=== PATIENT | female | born 1960 | race Caucasian/White ===

== ENCOUNTER 2018-12-18 19:00 | Inpatient (IN) ==
[2018-12-18] MEDS ORDERED: ASPIRIN CHEW 324 MG PO STA (19:15)
[2018-12-18] MEDS ORDERED: LORazepam 1 MG/2 ML VIAL IV STA (19:15)
[2018-12-18] MEDS ORDERED: SODIUM CHLORIDE 0.9% 1000ML 1,000 ML IV SCH (19:15)
[2018-12-18] MEDS ORDERED: LORazepam 1 MG TAB ONE (19:46)
[2018-12-18 20:05] LABS: Basophils # (auto) 0.02 K/uL (0-0.2); Basophils % (auto) 0.2 %; Eosinophils # (auto) 0.08 K/uL (0-0.5); Eosinophils % (auto) 0.7 %; Hemoglobin 14.6 g/dL (12.0-16.0); Immature Granulocytes # (auto) 0.04 K/uL (0.00-0.02); Immature Granulocytes % (auto) 0.3 %; Lymphocytes # (auto) 2.23 K/uL (1.2-3.4); Lymphocytes % (auto) 19.5 %; Mean Platelet Volume 10.5 fL (7.4-10.4); Monocytes # (auto) 0.73 K/uL (0.11-0.59); Monocytes % (auto) 6.4 %; Neutrophils # (auto) 8.36 K/uL (1.4-6.5); Neutrophils % (auto) 72.9 %; Platelet Count 338 K/uL (130-400); RDW Coefficient of Variation 14.4 % (11.5-14.5); RDW Standard Deviation 44.4 fL (36.4-46.3); White Blood Count 11.46 K/uL (4.8-10.8)
[2018-12-18 20:12] LABS: Appearance Urine Clear (Clear); Bacteria Urine Automated Negative (Negative); Bilirubin Urine Negative (Negative); Blood Urine Negative (Negative); Color Urine Yellow; Epithelial Cell Urine Auto >30 /lpf (0-5); Glucose Urine UA Negative (Negative); Ketones Urine Negative (Negative); Leukocyte Esterase Urine 1+ (Negative); Nitrite Urine Negative (Negative); Protein Urine 3+ (Negative); RBC Urine Automated 0-4 /hpf (0-4); Urobilinogen Urine Negative (Negative); pH Urine 5.5 (4.5-7.5)
[2018-12-18 20:15] LABS: INR 1.2 (0.9-1.1); Partial Thromboplastin Ratio 0.9; Partial Thromboplastin Time 24.9 Seconds (21.0-31.0); Prothrombin Time 12.1 Seconds (9.0-12.0)
[2018-12-18 20:21] LABS: Cast Urine Automated >30 /lpf (0-5)
[2018-12-18 20:22] LABS: Renal Epithelial Cells Urine 0-5 /lpf (0-5)
[2018-12-18 20:23] LABS: Albumin Level 3.5 gm/dl (3.4-5.0); BUN Creatinine Ratio 15.9 (10-20); Bilirubin Direct 0.5 mg/dl (0-0.2); Calcium 8.8 mg/dl (8.5-10.1); Est GFR (African American) 67.6; Est GFR (Non-African American) 58.4; Potassium 3.4 mmol/L (3.5-5.1)
[2018-12-18 20:30] LABS: Amphetamines+Metham, Urine Neg (Neg); Barbiturates, Urine Neg (Neg); Benzodiazepine, Urine Neg (Neg); Cocaine, Urine Neg (Neg); MDMA (Ecstacy), Urine Neg (Neg); Methadone, Urine Neg (Neg); Opiate, Urine Neg (Neg); Phencyclidine, Urine Neg (Neg)
[2018-12-18 20:31] LABS: Bilirubin,Total 2.1 mg/dl (0.2-1); Total Protein 7.3 gm/dl (6.4-8.2); Troponin I 0.062 ng/ml (0-0.045)
--- NOTE | 2018-12-18 20:42 | XRay Report ---
XR abdomen 2V w PA chest CLINICAL HISTORY: vomitting diarrhea tachycardia COMPARISON STUDY: None FINDINGS: Bilateral pleural effusion. Components of congestive heart failure. Nonobstructive bowel pa ttern. No abnormal calcifications. IMPRESSION: 1. Congestive heart failure. 2. Negative abdomen. The above report was generated using voice recognition software. It may contain grammatical, syntax or spelling errors. Electronically signed by: Lito Servin M.D. 12/18/2018 8:41 PM
[2018-12-18 20:43] LABS: Influenza A virus by PCR Neg for Influ A (Neg); Influenza B virus by PCR Neg for Influ B (Neg)
[2018-12-18] MEDS ORDERED: OPTIRAY 320 125ml IV PRN (21:06)
--- NOTE | 2018-12-18 21:12 | CT Scan Report ---
CT angio chest PE protocol CT DOSE: 356.01 mGy.cm HISTORY: Chest pain ro PE TECHNIQUE: Multiaxial CT images of the chest were performed following the intravenous administration of contrast to evaluate the pulmonary arteries. Maximal intensity projection images were also obtaine d. A dose lowering technique was utilized adhering to the principles of ALARA. COMPARISON STUDY: None. FINDINGS: Vascular is unremarkable. Pulmonary vasculature enhances appropriately. There are no filling defects. Findings of congestive he art failure and bilateral pleural effusions. Heart is moderately enlarged. IMPRESSION: 1. Congestive heart failure. 2. Bilateral pleural effusions. 3. Study is negative for pulmonary embolus. The above report was generated using voice recognition software. It may contain grammatical, syntax or spelling errors. Electronically signed by: Lito Servin M.D. 12/18/2018 9:10 PM
[2018-12-18] MEDS ORDERED: METOPROLOL TARTRATE 1 MG/ML VIAL IV STA (22:19)
[2018-12-18] MEDS ORDERED: FUROSEMIDE 40 MG in SYRINGE 0 ML IV ONE (22:22)
[2018-12-18] MEDS ORDERED: FUROSEMIDE 40 MG/4 ML VIAL IV ONE (22:27)
[2018-12-18] MEDS ORDERED: Heparin IV Standard *NO* Bolus ONE (22:54)
--- NOTE | 2018-12-18 23:03 | Emergency Department Note ---
Entered by Jalen Manrique acting as a scribe for History of Present Illness General Chief complaint: Tachycardia Stated complaint: high blood pressure, shortness of breath Time Seen by Provider: 12/18/18 19:10 Source: patient Limitations: no limitations History of Present Illness The patient is a 58 year old female who presents to the Emergency Room with complaints of tachycardia. The patient states she went to a walk-in clinic for a flu she has been having. She states she has been having nausea and diarrhea. She notes she has been coughing but denies coughing blood. She states she has been vomiting but notes no blood in vomit. She notes her legs have been swollen for a week. She notes she gets very anxious when coming to the hospital and notes she thinks that's the reason her BP and HR were up. She states her chest pain and difficulties breathing started when she came to the hospital. She denies recent long travels, blood in stool, dark or black stools, and vaginal discharge or bleeding. Home Medications Home Medications Medication Instructions Recorded Confirmed Type ibuprofen 200 mg PO QID PRN 12/18/18 12/18/18 History Allergies Allergy/AdvReac Type Severity Reaction Status Date / Time Penicillins Allergy HIVES,NAUSE Verified 12/18/18 20:02 A Sulfa (Sulfonamide Allergy Hives, Verified 12/18/18 20:02 Antibiotics) SWEKLLING ,NAUSEA Tetanus Vaccines and Toxoid AdvReac Nausea Verified 12/18/18 20:02 Past Med/Surg History Medical History No pertinent past medical history Surgical History No pertinent past surgical history Social History Preferred Language: Luxembour[place] Feels Safe at Home: Yes Smoking Status: Never smoker Review of Systems See HPI for pertinent positives & negatives. and A total of 10 systems reviewed and were otherwise negative Physical Exam Vital Signs Vital Signs - 24 hr 12/18/18 19:02 12/18/18 19:50 12/18/18 19:51 Temperature 36.6 C Temperature Source Oral Sepsis Recent Fever Within 48 Hours No Sepsis New/Unexplained Change in Mental Status No Sepsis Action Taken by Nursing No Action Required Pulse Rate 137 H Pulse Rate from SpO2 Sensor Respiratory Rate 18 Blood Pressure 206/142 H Blood Pressure Mean 163 Pulse Oximetry 100 Oxygen Delivery Method Room Air Room Air Room Air 12/18/18 20:06 12/18/18 20:08 12/18/18 20:24 Temperature Temperature Source Sepsis Recent Fever Within 48 Hours Sepsis New/Unexplained Change in Mental Status Sepsis Action Taken by Nursing Pulse Rate 123 H 123 H 124 H Pulse Rate from SpO2 Sensor Respiratory Rate 24 18 19 Blood Pressure 169/128 H 189/137 H Blood Pressure Mean 141 154 Pulse Oximetry Oxygen Delivery Method 12/18/18 20:36 12/18/18 20:40 12/18/18 20:41 Temperature Temperature Source Sepsis Recent Fever Within 48 Hours Sepsis New/Unexplained Change in Mental Status Sepsis Action Taken by Nursing Pulse Rate 132 H 129 H 131 H Pulse Rate from SpO2 Sensor Respiratory Rate 24 21 19 Blood Pressure 194/142 H Blood Pressure Mean 159 Pulse Oximetry Oxygen Delivery Method 12/18/18 20:50 12/18/18 21:30 12/18/18 22:00 Temperature Temperature Source Sepsis Recent Fever Within 48 Hours Sepsis New/Unexplained Change in Mental Status Sepsis Action Taken by Nursing Pulse Rate 125 H 122 H 122 H Pulse Rate from SpO2 Sensor 124 H 123 H Respiratory Rate 20 24 22 Blood Pressure 183/138 H 175/126 H Blood Pressure Mean 153 142 Pulse Oximetry 98 95 Oxygen Delivery Method Room Air 12/18/18 22:30 12/18/18 22:35 12/18/18 22:49 Temperature Temperature Source Sepsis Recent Fever Within 48 Hours Sepsis New/Unexplained Change in Mental Status Sepsis Action Taken by Nursing Pulse Rate 117 H 118 H 98 H Pulse Rate from SpO2 Sensor 115 H 100 H Respiratory Rate 26 H 22 Blood Pressure 170/115 H 170/115 H 151/114 H Blood Pressure Mean 133 126 Pulse Oximetry 96 97 Oxygen Delivery Method 12/18/18 22:50 Temperature Temperature Source Sepsis Recent Fever Within 48 Hours Sepsis New/Unexplained Change in Mental Status Sepsis Action Taken by Nursing Pulse Rate 98 H Pulse Rate from SpO2 Sensor 95 H Respiratory Rate 21 Blood Pressure Blood Pressure Mean Pulse Oximetry 98 Oxygen Delivery Method GENERAL: She is oriented to person, place, and time. She appears well-developed and well-nourished. She does not appear distressed. HENT: Exam performed. \[id number] Head: Normocephalic and atraumatic. \u00b7 Right Ear: External ear normal. No mastoid tenderness. \u00b7 Left Ear: External ear normal. No mastoid tenderness. \u00b7 Mouth/Throat: The oropharynx is clear and moist. No trismus in the jaw. No dental abscesses or uvula swelling. No oropharyngeal exudate or tonsillar abscesses. EYES: Conjunctivae and EOM are normal. Pupils are equal, round, and reactive to light. Right eye exhibits no discharge. Left eye exhibits no discharge. No scleral icterus. NECK: Normal range of motion. Neck supple. No JVD present. No spinous process tenderness present. No carotid bruit present. No rigidity. No tracheal deviation and normal range of motion present. No Brudzinski's sign and no Kernig's sign noted. CV: Tachycardic rate, regular rhythm, normal heart sounds and intact distal pulses. Palpable radial pulses bue. 2+ pitting edema in bilateral lower extremities. PULM/CHEST: Effort normal and breath sounds normal. No respiratory distress. No stridor. She has no wheezes. She has no rales. Chest Wall: She exhibits no tenderness. ABD: The abdomen is soft. Bowel sounds are normal. She has no distension. No mass is present. There is no tenderness. There is no rebound, no guarding, no Piedra's sign and no tenderness at McBurney's point. Rovsig negative MUSC/SKEL: Normal range of motion. There is no tenderness or deformity. 2+ pitting edema in bilateral lower extremities. LYMPH: No cervical adenopathy. NEURO: She is alert and oriented to person, place, and time. She has normal strength. No cranial nerve deficit or sensory deficit. Coordination and gait normal. GCS eye subscore is 4. GCS verbal subscore is 5. GCS motor subscore is 6. cerbellar tests wnl. SKIN: Skin is warm and dry. She is not diaphoretic. PSYCH: She has a normal mood and affect. Her behavior is normal. Judgment and thought content normal. Course 1910: Past medical records reviewed. The patient was evaluated in room C7, and a complete history and physical examination were performed. 2044: A repeat EKG showed sinus tachycardia at 130 BPM. The KY, QRS, and QT/QTc are wnls. ST depression was shown in leads v5 and v6. No ST elevation. I reevaluated the patient. Patient denies chest pain or SOB. Labs showed sodium of 127. Lactic acid of 2.2. Troponin of 0.062. NT-Pro-B Natriuret Pep of . Patient's imaging shows findings consistent with CHF, cardiomegaly, right-sided pleural effusion, and cephalization. The patient remains tachycardic despite Ativan. IV fluids were stopped given the patient's findings of cardiomegaly and cephalization on x-ray and elevated proBNP level. The patient will get a CT of chest to rule out PE. 2215: CTA negative for PE. Does shows findings consistent with CHF, cardiomegaly with bilateral pleural effusions. It is difficult to ascertain if the patient's findings of congestive heart failure are due to a new diagnosis of congestive heart failure causing an elevated troponin level, or if there is an NSTEMI causing impaired cardiac contractility resulting in findings that are consistent with congestive heart failure. I discussed the patients case with cardiology on- call Dr. Miller. Both he and I agree that the patient should be started on heparin given the elevated troponin the patient's clinical presentation. He recommends improving the patient's heart rate with metoprolol 5 mg IV. He also recommends giving Lasix 40 mg. 2300: Status post metoprolol 5 mg IV bolus and Lasix, the patient's pulse is 98. Repeat blood pressure 151/114. Repeat EKG shows sinus rhythm with a rate of 99. KY QRS interval within normal limits. QTC 528. There is baseline artifact due to patient movement. T wave inversions in lead V6 only. No ST elevation or ST depression. Discussed case with Dr. Crowe who agrees to admission. Administered Medications Ioversol (Optiray 320 125ml) 96 ml IV ONCE PRN PRN Reason: Interaction Checking Stop: 12/22/18 21:05 Last Admin: 12/18/18 21:06 Dose: 96 ml Documented by: [id number] Discontinued Medications Aspirin (Aspirin) 324 mg PO NOW STA Stop: 12/18/18 19:16 Last Admin: 12/18/18 19:44 Dose: 324 mg Documented by: [id number] Furosemide (Lasix) Confirm Administered Dose 40 mg IV .ST[facility]VI [employer]-[facility] ONE Stop: 12/18/18 22:28 Last Admin: 12/18/18 22:36 Dose: 40 mg Documented by: [id number] Sodium Chloride (Nss 1000ml) 1,000 mls @ 999 mls/hr IV .Q1H1M MIKE Stop: 12/18/18 20:15 Last Infusion: 12/18/18 21:09 Dose: 0 mls/hr Documented by: [id number] Admin: 12/18/18 20:06 Dose: 999 mls/hr Documented by: [id number] Lorazepam (Ativan) 1 mg in 2 mls @ 2 mls/min IV NOW STA Stop: 12/18/18 19:16 Last Admin: 12/18/18 19:49 Dose: Not Given Documented by: [id number] Furosemide 40 mg/ Syringe 4 mls @ 4 mls/min IV ONE ONE Stop: 12/18/18 22:23 Last Admin: 12/18/18 22:36 Dose: Not Given Documented by: [id number] Lorazepam (Ativan) Confirm Administered Dose 1 mg .ROUTE .STK-MED ONE Stop: 12/18/18 19:47 Last Admin: 12/18/18 19:49 Dose: 1 mg Documented by: [id number] Metoprolol Tartrate (Lopressor) 5 mg IV NOW STA Stop: 12/18/18 22:20 Last Admin: 12/18/18 22:35 Dose: 5 mg Documented by: [id number] Medical Decision Making Medical Records Attestation: I reviewed the patient's medical records. Home Medications Current Medication List: was personally reviewed by me Laboratory Data Attestation: I reviewed the patient's lab results. Result diagrams: 12/18/18 19:36 12/18/18 19:36 Lab Results 12/18/18 12/18/18 12/18/18 Range/Units 19:36 19:36 19:36 WBC 11.46 H (4.8-10.8) K/uL RBC 5.00 (4.2-5.4) M/uL Hgb 14.6 (12.0-16.0) g/dL Hct 43.0 (37-47) % MCV 86.0 (80-100) fL MCH 29.2 (25-34) pg MCHC 34.0 (32-36) g/dL RDW Std Deviation 44.4 (36.4-46.3) fL RDW Coeff of Clemencia 14.4 (11.5-14.5) % Plt Count 338 (130-400) K/uL MPV 10.5 H (7.4-10.4) fL Immature Gran % (Auto) 0.3 % Neut % (Auto) 72.9 % Lymph % (Auto) 19.5 % [place] % (Auto) 6.4 % Eos % (Auto) 0.7 % Baso % (Auto) 0.2 % Immature Gran # (Auto) 0.04 H (0.00-0.02) K/uL Neut # (Auto) 8.36 H (1.4-6.5) K/uL Lymph # (Auto) 2.23 (1.2-3.4) K/uL [place] # (Auto) 0.73 H (0.11-0.59) K/uL Eos # (Auto) 0.08 (0-0.5) K/uL Baso # (Auto) 0.02 (0-0.2) K/uL PT 12.1 H (9.0-12.0) Seconds INR 1.2 H (0.9-1.1) APTT 24.9 (21.0-31.0) Seconds PTT Ratio 0.9 Sodium 127 L (136-145) mmol/L Potassium 3.4 L (3.5-5.1) mmol/L Chloride 91 L (98-107) mmol/L Carbon Dioxide 21 (21-32) mmol/L Anion Gap 15.0 H (3-11) BUN 17 (7-18) mg/dl Creatinine 1.04 (0.6-1.2) mg/dl Est Cr Clr Drug Dosing 64.0 ml/min Est GFR ( Amer) 67.6 Est GFR (Non-Af Amer) 58.4 BUN/Creatinine Ratio 15.9 (10-20) Glucose 132 H (70-99) mg/dl Lactate (0.4-2.0) mmol/L Calcium 8.8 (8.5-10.1) mg/dl Total Bilirubin 2.1 H (0.2-1) mg/dl Direct Bilirubin 0.5 H (0-0.2) mg/dl AST 24 (15-37) U/L ALT 39 (12-78) U/L Alkaline Phosphatase 104 (45-117) U/L Troponin I 0.062 H* (0-0.045) ng/ml NT-Pro-B Natriuret Pep 62420 H (0-900) pg/ml Total Protein 7.3 (6.4-8.2) gm/dl Albumin 3.5 (3.4-5.0) gm/dl Lipase 81 (73-393) U/L Urine Color Urine Appearance (Clear) Urine pH (4.5-7.5) Ur Specific [place] (1.000-1.030) Urine Protein (Negative) Urine Glucose (UA) (Negative) Urine Ketones (Negative) Urine Blood (Negative) Urine Nitrite (Negative) Urine Bilirubin (Negative) Urine Urobilinogen (Negative) Ur Leukocyte Esterase (Negative) Urine WBC (Auto) (0-5) /hpf Urine RBC (Auto) (0-4) /hpf U Hyaline Cast (Auto) (0-5) /lpf U Epithel Cells (Auto) (0-5) /lpf Urine Bacteria (Auto) (Negative) Ur Renal Epithelial Cell (0-5) /lpf Granular Casts (0) /lpf Waxy Casts (0) /lpf WBC Casts (0) /lpf Urine Opiates Screen (Neg) Ur Methadone, Qual (Neg) Urine Barbiturates (Neg) Ur Phencyclidine (PCP) (Neg) U Amphetamin/Meth Scrn (Neg) MDMA (Ecstasy) Screen (Neg) U Benzodiazepines Scrn (Neg) Ur Cocaine Metabolite (Neg) U Marijuana (THC) Screen (Neg) Influenza Type A (PCR) (Neg) Influenza Type B (PCR) (Neg) 12/18/18 12/18/18 12/18/18 Range/Units 19:36 19:50 19:50 WBC (4.8-10.8) K/uL RBC (4.2-5.4) M/uL Hgb (12.0-16.0) g/dL Hct (37-47) % MCV (80-100) fL MCH (25-34) pg MCHC (32-36) g/dL RDW Std Deviation (36.4-46.3) fL RDW Coeff of Clemencia (11.5-14.5) % Plt Count (130-400) K/uL MPV (7.4-10.4) fL Immature Gran % (Auto) % Neut % (Auto) % Lymph % (Auto) % [place] % (Auto) % Eos % (Auto) % Baso % (Auto) % Immature Gran # (Auto) (0.00-0.02) K/uL Neut # (Auto) (1.4-6.5) K/uL Lymph # (Auto) (1.2-3.4) K/uL [place] # (Auto) (0.11-0.59) K/uL Eos # (Auto) (0-0.5) K/uL Baso # (Auto) (0-0.2) K/uL PT (9.0-12.0) Seconds INR (0.9-1.1) APTT (21.0-31.0) Seconds PTT Ratio Sodium (136-145) mmol/L Potassium (3.5-5.1) mmol/L Chloride (98-107) mmol/L Carbon Dioxide (21-32) mmol/L Anion Gap (3-11) BUN (7-18) mg/dl Creatinine (0.6-1.2) mg/dl Est Cr Clr Drug Dosing ml/min Est GFR ( Amer) Est GFR (Non-Af Amer) BUN/Creatinine Ratio (10-20) Glucose (70-99) mg/dl Lactate 2.2 H* (0.4-2.0) mmol/L Calcium (8.5-10.1) mg/dl Total Bilirubin (0.2-1) mg/dl Direct Bilirubin (0-0.2) mg/dl AST (15-37) U/L ALT (12-78) U/L Alkaline Phosphatase (45-117) U/L Troponin I (0-0.045) ng/ml NT-Pro-B Natriuret Pep (0-900) pg/ml Total Protein (6.4-8.2) gm/dl Albumin (3.4-5.0) gm/dl Lipase (73-393) U/L Urine Color Yellow Urine Appearance Clear (Clear) Urine pH 5.5 (4.5-7.5) Ur Specific [place] 1.020 (1.000-1.030) Urine Protein 3+ H (Negative) Urine Glucose (UA) Negative (Negative) Urine Ketones Negative (Negative) Urine Blood Negative (Negative) Urine Nitrite Negative (Negative) Urine Bilirubin Negative (Negative) Urine Urobilinogen Negative (Negative) Ur Leukocyte Esterase 1+ H (Negative) Urine WBC (Auto) 10-30 H (0-5) /hpf Urine RBC (Auto) 0-4 (0-4) /hpf U Hyaline Cast (Auto) >30 H (0-5) /lpf U Epithel Cells (Auto) >30 H (0-5) /lpf Urine Bacteria (Auto) Negative (Negative) Ur Renal Epithelial Cell 0-5 (0-5) /lpf Granular Casts 1-5 H (0) /lpf Waxy Casts 1-5 H (0) /lpf WBC Casts 1-5 H (0) /lpf Urine Opiates Screen Neg (Neg) Ur Methadone, Qual Neg (Neg) Urine Barbiturates Neg (Neg) Ur Phencyclidine (PCP) Neg (Neg) U Amphetamin/Meth Scrn Neg (Neg) MDMA (Ecstasy) Screen Neg (Neg) U Benzodiazepines Scrn Neg (Neg) Ur Cocaine Metabolite Neg (Neg) U Marijuana (THC) Screen Neg (Neg) Influenza Type A (PCR) (Neg) Influenza Type B (PCR) (Neg) 12/18/18 Range/Units 20:03 WBC (4.8-10.8) K/uL RBC (4.2-5.4) M/uL Hgb (12.0-16.0) g/dL Hct (37-47) % MCV (80-100) fL MCH (25-34) pg MCHC (32-36) g/dL RDW Std Deviation (36.4-46.3) fL RDW Coeff of Clemencia (11.5-14.5) % Plt Count (130-400) K/uL MPV (7.4-10.4) fL Immature Gran % (Auto) % Neut % (Auto) % Lymph % (Auto) % [place] % (Auto) % Eos % (Auto) % Baso % (Auto) % Immature Gran # (Auto) (0.00-0.02) K/uL Neut # (Auto) (1.4-6.5) K/uL Lymph # (Auto) (1.2-3.4) K/uL [place] # (Auto) (0.11-0.59) K/uL Eos # (Auto) (0-0.5) K/uL Baso # (Auto) (0-0.2) K/uL PT (9.0-12.0) Seconds INR (0.9-1.1) APTT (21.0-31.0) Seconds PTT Ratio Sodium (136-145) mmol/L Potassium (3.5-5.1) mmol/L Chloride (98-107) mmol/L Carbon Dioxide (21-32) mmol/L Anion Gap (3-11) BUN (7-18) mg/dl Creatinine (0.6-1.2) mg/dl Est Cr Clr Drug Dosing ml/min Est GFR ( Amer) Est GFR (Non-Af Amer) BUN/Creatinine Ratio (10-20) Glucose (70-99) mg/dl Lactate (0.4-2.0) mmol/L Calcium (8.5-10.1) mg/dl Total Bilirubin (0.2-1) mg/dl Direct Bilirubin (0-0.2) mg/dl AST (15-37) U/L ALT (12-78) U/L Alkaline Phosphatase (45-117) U/L Troponin I (0-0.045) ng/ml NT-Pro-B Natriuret Pep (0-900) pg/ml Total Protein (6.4-8.2) gm/dl Albumin (3.4-5.0) gm/dl Lipase (73-393) U/L Urine Color Urine Appearance (Clear) Urine pH (4.5-7.5) Ur Specific [place] (1.000-1.030) Urine Protein (Negative) Urine Glucose (UA) (Negative) Urine Ketones (Negative) Urine Blood (Negative) Urine Nitrite (Negative) Urine Bilirubin (Negative) Urine Urobilinogen (Negative) Ur Leukocyte Esterase (Negative) Urine WBC (Auto) (0-5) /hpf Urine RBC (Auto) (0-4) /hpf U Hyaline Cast (Auto) (0-5) /lpf U Epithel Cells (Auto) (0-5) /lpf Urine Bacteria (Auto) (Negative) Ur Renal Epithelial Cell (0-5) /lpf Granular Casts (0) /lpf Waxy Casts (0) /lpf WBC Casts (0) /lpf Urine Opiates Screen (Neg) Ur Methadone, Qual (Neg) Urine Barbiturates (Neg) Ur Phencyclidine (PCP) (Neg) U Amphetamin/Meth Scrn (Neg) MDMA (Ecstasy) Screen (Neg) U Benzodiazepines Scrn (Neg) Ur Cocaine Metabolite (Neg) U Marijuana (THC) Screen (Neg) Influenza Type A (PCR) Neg for Influ A (Neg) Influenza Type B (PCR) Neg for Influ B (Neg) Imaging Data Radiologist's Impression: Radiology results as stated below per my review and the radiologist's interpretation: XR abdomen 2V w PA chest CLINICAL HISTORY: vomiting diarrhea tachycardia COMPARISON STUDY: None FINDINGS: Bilateral pleural effusion. Components of congestive heart failure. Nonobstructive bowel pattern. No abnormal calcifications. IMPRESSION: 1. Congestive heart failure. 2. Negative abdomen. The above report was generated using voice recognition software. It may contain grammatical, syntax or spelling errors. Electronically signed by: Lito Servin M.D. 12/18/2018 8:[address] angio chest PE protocol CT DOSE: 356.01 mGy.cm HISTORY: Chest pain ro PE TECHNIQUE: Multiaxial CT images of the chest were performed following the intravenous administration of contrast to evaluate the pulmonary arteries. Maximal intensity projection images were also obtained. A dose lowering technique was utilized adhering to the principles of ALARA. COMPARISON STUDY: None. FINDINGS: Vascular is unremarkable. Pulmonary vasculature enhances appropriately. There are no filling defects. Findings of congestive heart failure and bilateral pleural effusions. Heart is moderately enlarged. IMPRESSION: 1. Congestive heart failure. 2. Bilateral pleural effusions. 3. Study is negative for pulmonary embolus. The above report was generated using voice recognition software. It may contain grammatical, syntax or spelling errors. Electronically signed by: Lito Servin M.D. 12/18/2018 9:10 PM ECG Data Attestation: I personally reviewed and interpreted this ECG as follows: Indication: tachycardia Rate (beats per minute): 136 Rhythm: sinus tachycardia Findings: + other ([place] and QRS intervals wnls) and + ST depression (in leads 2 and 3 in v4-v6) Blood Pressure Blood Pressure Findings: Elevated blood pressure Blood Pressure Disposition: further management by hospitalist YUDI Velazquez 1909: Past medical records reviewed. The patient was evaluated in room C7, and a complete history and physical examination were performed. 2044: A repeat EKG showed sinus tachycardia at 130 BPM. The [place], QRS, and QT/QTc are wnls. ST depression was shown in leads v5 and v6. No ST elevation. I reevaluated the patient. Patient denies chest pain or SOB. Labs showed sodium of 127. Lactic acid of 2.2. Troponin of 0.062. [place] [id number]. Patient's imaging shows findings consistent with CHF, cardiomegaly, right-sided pleural effusion, and cephalization. The patient remains tachycardic despite Ativan. IV fluids were stopped given the patient's findings of cardiomegaly and cephalization on x-ray and elevated proBNP level. The patient will get a CT of chest to rule out PE. 2215: CTA negative for PE. Does shows findings consistent with CHF, cardiomegaly with bilateral pleural effusions. It is difficult to ascertain if the patient's findings of congestive heart failure are due to a new diagnosis of congestive heart failure causing an elevated troponin level, or if there is an NSTEMI causing impaired cardiac contractility resulting in findings that are consistent with congestive heart failure. I discussed the patients case with cardiology on- call Dr. Miller. Both he and I agree that the patient should be started on heparin given the elevated troponin the patient's clinical presentation. He recommends improving the patient's heart rate with metoprolol 5 mg IV. He also recommends giving Lasix 40 mg. 2300: Status post metoprolol 5 mg IV bolus and Lasix, the patient's pulse is 98. Repeat blood pressure 151/114. Repeat EKG shows sinus rhythm with a rate of 99. [place] QRS interval within normal limits. QTC 528. There is baseline artifact due to patient movement. T wave inversions in lead V6 only. No ST elevation or ST depression. Discussed case with Dr. Crowe who agrees to admission. Impression & Plan Non-ST elevation LA (NSTEMI), CHF (congestive heart failure), Acute hyponatremia Critical Care Time I have personally spent greater than 60 minutes of critical care time in the direct management of this patient. This includes bedside care, interpretation of diagnostic studies, and testing, discussion with consultants, patient, and family members, and other required patient management activities. This [] minutes is in excess of all separately billable procedures. Critical Care Time: Yes Total Critical Care Time: 60 Discharge Plan Visit Data Chief Complaint: Tachycardia Stated Complaint: high blood pressure, shortness of breath ED Provider: Jeffery Salcedo Discharge Problem: Non-ST elevation LA (NSTEMI), CHF (congestive heart failure), Acute hyponatremia Patient Disposition: Being Evaluated by Hospitalist Forms Stand Alone Forms: [facility] Prescriptions Prescriptions: No Action ibuprofen 200 mg Tablet 200 mg PO QID PRN (Reason: Pain) RF: 0 Referrals Referrals: PCP,NO [Primary Care Provider] - Discharge Problem: CHF (congestive heart failure) Qualifiers: Heart failure type: unspecified Heart failure chronicity: acute Qualified Code(s): I50.9 - Heart failure, unspecified The scribe's documentation has been prepared under my direction and personally reviewed by me in its entirety. I confirm that the note above accurately reflects all work, treatment, procedures, and medical decision making performed by me.
[2018-12-18] MEDS ORDERED: HEPARIN 25000 UNIT/500 ML D5W IV ONE (23:10)
--- NOTE | 2018-12-19 01:34 | History & Physical Report ---
Date of Service December 19, 2018 Assessment & Plan (1) Cough: 58-year-old female was admitted on 19 December 2018 for evaluation of tachycardia, cough, and concerns for newly diagnosed CHF. Cough, nausea/vomiting, loose stools: Patient notes the cough for about six weeks now, loose stools on and off since late November, and mostly post-tussive emesis. No known fevers throughout this time. No known initial infectious exposure. On arrival, afebrile, tachycardic as described below, WBC 11, and a lactate of 2.2. Influenza screen negative. UA was dirty. Urine culture was sent. CTA chest not suggestive of focal infiltrate. DDx for the cough may be an initial URI illness, ongoing bronchitis, or more related to her current pleural effusions. Tachycardia, acute congestive heart failure, bilateral pleural effusions: Patient notes cough as above. No known history of CHF or other cardiac disease. On arrival, heart rate in 120s. Initial EKG was borderline tachy (99) with ST depressions in V5 and V6. Repeat EKG was sinus tachy 101 but otherwise unchanged from prior (i.e. still questionable ST depressions in V5 and V6). Not anemic. Troponin was 0.062. BNP over 19,000. Urine tox screen negative. X- ray of abdomen with PA chest only suggestive of congestive heart failure. CTA chest noted bilateral pleural effusions without evidence of embolus. DDx includes acute cardiomyopathy (viral vs others) vs underlying heart disease (e.g. ischemic vs anatomic issue) vs acute ischemic issue. - In ED, IV fluids were stopped. They spoke with on-call cardiology. Patient was given aspirin 324 mg, metoprolol 5 mg, and Lasix 40 mg. Heart rate improved to high 90s. ED started her on heparin per cardiology recommendations. - We will trend her troponin. We will also order CMV and coxsackie virus testing. - Continue Lasix 40 mg IV twice daily. Will give a repeat dose of Lopressor and repeat another EKG to see if it improves her rate. - Ordered echocardiogram. - Cardiology formally consulted. Hypertension: As high as 194/142. Patient denies known PMH of same. Initial treatment as noted with tachycardia above. Anxiety: Patient admits she has some generalized anxiety when seeking medical care. This did likely contributing somewhat to her tachycardia, though does not completely explain it. In ED, patient was given Ativan 1 mg. - Wrote for Ativan 0.5 mg PO BID prn anxiety. Hyponatremia: Admit sodium 127. Cr 1.04. May be due to some fluid losses from her vomiting and diarrhea. - Will order a serum osm and recheck electrolytes in the am. Hypokalemia: Admit potassium 3.4, possibly due to some fluid losses. Did receive Lasix in the ED for her CHF. - We will check a magnesium level. Replacing potassium, monitoring. Thrombocytopenia: Admit platelets 132. No report or evidence of acute bleeding. Will recheck with morning labs. Prolonged QTc: Initial EKG was QTc 528. Will try to avoid QT-prolonging medications. Elevated bilirubin: Admit total bilirubin 2.1, direct bilirubin 0.5. INR 1.2. Normal AST, ALT, and AP. May be an inherited issue. Will recheck in AM. Code status: Full code. Diet: Heart healthy, 2 gram sodium. DVT prophy: Lovenox. PT/OT: Deferred. Disbo: Admit to [facility] telemetry. (2) Nausea and vomiting: (3) Loose stools: (4) Tachycardia: (5) Acute congestive heart failure: (6) Bilateral pleural effusion: (7) Hypertension: (8) Anxiety: (9) Hyponatremia: (10) Hypokalemia: (11) Thrombocytopenia: (12) Prolonged QT interval: (13) Elevated bilirubin: History of Present Illness Primary Care Provider: NO PCP 58-year-old female presents with concerns for ongoing cough for about six weeks as well as nausea, occasional vomiting, occasional diarrhea, acutely bilateral swollen legs, and some new shortness of breath earlier on day prior to admission. - Patient notes no particular initial inciting source, stating about six weeks ago she developed self-described cold/flu symptoms. Primarily noted congested cough that has continued until the present. She says sometimes she will cough for three minutes straight which will result in some vomiting. This began around the end of November. She says she does not have emesis daily but did have some today, mostly of mucus. - Patient notes beginning this past Friday, she developed the new onset of bilateral ankle swelling. She says she has had mild leg swelling in the past if she eats too many salty chips. However, this amount of swelling seems the most severe. - She is noted some loose stools that began around the end of November as well. The most severe of which seemed to last for a couple of days. She thinks she was able to resolve this with more of a BRAT diet and has had some formed stools since. However, she says they have been loose in the past 24 hours. - Today, she noticed that she had some mild shortness of breath which was new when she was walking from her car. Normally she says she has no SOB, including with normal activity or walking on the stairs. She denies any chest pain throughout today or the past six weeks. On day prior to admit she initially presented to an urgent care who noted that she had an elevated blood pressure and referred her here. - At time of this H&P, the patient had received some Ativan for self-described anxiety related to any doctor's visit. She noted she felt much more calm. At present, she denies any chest pain, shortness of breath, ongoing nausea, abdominal pain, but says that her legs still feel just about as swollen as they have been over the past week. She denies any other acute concerns. Patient denies any known ongoing medical history. She denies any previous surgical procedures or chronic medications. She denies taking any medications regularly. She denies smoking and says she drinks alcohol very rarely. At baseline, she lives at home with her . 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 Cardiovascular: Denies any chest pain. Positive bilateral lower extremity edema. Gastrointestinal: Denies any abdominal pain. See HPI for nausea, vomiting, diarrhea. Musculoskeletal: Denies any acute extremity pains, myalgias, or focal weakness Skin: Denies any known acute rashes or lesions Neuro: Denies any headache, acute focal weakness or numbness, or difficulties with speech or swallow. Psych: See HPI. Physical Exam Vital Signs (Past 24 Hours): Last Vital Signs Temp 36.6 C 12/18/18 19:02 Pulse 103 H 12/19/18 00:00 Resp 17 12/19/18 00:00 BP 150/115 H 12/19/18 00:00 Pulse Ox 97 12/19/18 00:00 Physical Exam: GENERAL: Awake, alert, well-appearing, speaking easily in full sentences, in no acute distress HENT: Normocephalic, atraumatic. Oropharynx unremarkable. EYES: Normal conjunctiva. Sclera non-icteric. NECK: Inspection normal. Non-tender. Supple and full ROM. No nuchal rigidity. CARDIAC: +S1S2 RRR, no murmurs. RESPIRATORY: Mild rhonchi at bilateral bases. Otherwise clear. Normal respiratory effort. GI: +BS, soft, non-distended. No tenderness to palpation. No rebound or guarding. No appreciable masses. EXTREMITIES: Moving all extremities naturally and easily. 1+ bilateral lower extremity edema from shins distally. NEURO: No gross neuro deficits. Results & Data Laboratory Results Laboratory Results WBC 11.46 K/uL (4.8-10.8) H 12/18/18 19:36 RBC 5.00 M/uL (4.2-5.4) 12/18/18 19:36 Hgb 14.6 g/dL (12.0-16.0) 12/18/18 19:36 Hct 43.0 % (37-47) 12/18/18 19:36 MCV 86.0 fL (80-100) 12/18/18 19:36 MCH 29.2 pg (25-34) 12/18/18 19:36 MCHC 34.0 g/dL (32-36) 12/18/18 19:36 RDW Std Deviation 44.4 fL (36.4-46.3) 12/18/18 19:36 RDW Coeff of Clemencia 14.4 % (11.5-14.5) 12/18/18 19:36 Plt Count 338 K/uL (130-400) 12/18/18 19:36 MPV 10.5 fL (7.4-10.4) H 12/18/18 19:36 Immature Gran % (Auto) 0.3 % 12/18/18 19:36 Neut % (Auto) 72.9 % 12/18/18 19:36 Lymph % (Auto) 19.5 % 12/18/18 19:36 [place] % (Auto) 6.4 % 12/18/18 19:36 Eos % (Auto) 0.7 % 12/18/18 19:36 Baso % (Auto) 0.2 % 12/18/18 19:36 Immature Gran # (Auto) 0.04 K/uL (0.00-0.02) H 12/18/18 19:36 Neut # (Auto) 8.36 K/uL (1.4-6.5) H 12/18/18 19:36 Lymph # (Auto) 2.23 K/uL (1.2-3.4) 12/18/18 19:36 [place] # (Auto) 0.73 K/uL (0.11-0.59) H 12/18/18 19:36 Eos # (Auto) 0.08 K/uL (0-0.5) 12/18/18 19:36 Baso # (Auto) 0.02 K/uL (0-0.2) 12/18/18 19:36 PT 12.1 Seconds (9.0-12.0) H 12/18/18 19:36 INR 1.2 (0.9-1.1) H 12/18/18 19:36 APTT 24.9 Seconds (21.0-31.0) 03/08/19 19:36 PTT Ratio 0.9 12/18/18 19:36 Sodium 127 mmol/L (136-145) L 12/18/18 19:36 Potassium 3.4 mmol/L (3.5-5.1) L 12/18/18 19:36 Chloride 91 mmol/L (98-107) L 12/18/18 19:36 Carbon Dioxide 21 mmol/L (21-32) 12/18/18 19:36 Anion Gap 15.0 (3-11) H 12/18/18 19:36 BUN 17 mg/dl (7-18) 12/18/18 19:36 Creatinine 1.04 mg/dl (0.6-1.2) 12/18/18 19:36 Est Cr Clr Drug Dosing 64.0 ml/min 12/18/18 19:36 Est GFR ( Amer) 67.6 12/18/18 19:36 Est GFR (Non-Af Amer) 58.4 12/18/18 19:36 BUN/Creatinine Ratio 15.9 (10-20) 12/18/18 19:36 Glucose 132 mg/dl (70-99) H 12/18/18 19:36 Lactate 2.2 mmol/L (0.4-2.0) H* 12/18/18 19:36 Calcium 8.8 mg/dl (8.5-10.1) 12/18/18 19:36 Total Bilirubin 2.1 mg/dl (0.2-1) H 12/18/18 19:36 Direct Bilirubin 0.5 mg/dl (0-0.2) H 12/18/18 19:36 AST 24 U/L (15-37) 12/18/18 19:36 ALT 39 U/L (12-78) 12/18/18 19:36 Alkaline Phosphatase 104 U/L (45-117) 12/18/18 19:36 Troponin I 0.062 ng/ml (0-0.045) H* 12/18/18 19:36 NT-Pro-B Natriuret Pep 46988 pg/ml (0-900) H 12/18/18 19:36 Total Protein 7.3 gm/dl (6.4-8.2) 12/18/18 19:36 Albumin 3.5 gm/dl (3.4-5.0) 12/18/18 19:36 Lipase 81 U/L (73-393) 12/18/18 19:36 Urine Color Yellow 12/18/18 19:50 Urine Appearance Clear (Clear) 12/18/18 19:50 Urine pH 5.5 (4.5-7.5) 12/18/18 19:50 Ur Specific [place] 1.020 (1.000-1.030) 12/18/18 19:50 Urine Protein 3+ (Negative) H 12/18/18 19:50 Urine Glucose (UA) Negative (Negative) 12/18/18 19:50 Urine Ketones Negative (Negative) 12/18/18 19:50 Urine Blood Negative (Negative) 12/18/18 19:50 Urine Nitrite Negative (Negative) 12/18/18 19:50 Urine Bilirubin Negative (Negative) 12/18/18 19:50 Urine Urobilinogen Negative (Negative) 12/18/18 19:50 Ur Leukocyte Esterase 1+ (Negative) H 12/18/18 19:50 Urine WBC (Auto) 10-30 /hpf (0-5) H 12/18/18 19:50 Urine RBC (Auto) 0-4 /hpf (0-4) 12/18/18 19:50 U Hyaline Cast (Auto) >30 /lpf (0-5) H 12/18/18 19:50 U Epithel Cells (Auto) >30 /lpf (0-5) H 12/18/18 19:50 Urine Bacteria (Auto) Negative (Negative) 12/18/18 19:50 Ur Renal Epithelial Cell 0-5 /lpf (0-5) 12/18/18 19:50 Granular Casts 1-5 /lpf (0) H 12/18/18 19:50 Waxy Casts 1-5 /lpf (0) H 12/18/18 19:50 WBC Casts 1-5 /lpf (0) H 12/18/18 19:50 Urine Opiates Screen Neg (Neg) 12/18/18 19:50 Ur Methadone, Qual Neg (Neg) 12/18/18 19:50 Urine Barbiturates Neg (Neg) 12/18/18 19:50 Ur Phencyclidine (PCP) Neg (Neg) 12/18/18 19:50 U Amphetamin/Meth Scrn Neg (Neg) 12/18/18 19:50 MDMA (Ecstasy) Screen Neg (Neg) 12/18/18 19:50 U Benzodiazepines Scrn Neg (Neg) 12/18/18 19:50 Ur Cocaine Metabolite Neg (Neg) 12/18/18 19:50 U Marijuana (THC) Screen Neg (Neg) 12/18/18 19:50 Influenza Type A (PCR) Neg for Influ A (Neg) 12/18/18 20:03 Influenza Type B (PCR) Neg for Influ B (Neg) 12/18/18 20:03 Diagnostic Findings XR abdomen 2V w PA chest CLINICAL HISTORY: vomitting diarrhea tachycardia COMPARISON STUDY: None FINDINGS: Bilateral pleural effusion. Components of congestive heart failure. Nonobstructive bowel pattern. No abnormal calcifications. IMPRESSION: 1. Congestive heart failure. 2. Negative abdomen. CT angio chest PE protocol CT DOSE: 356.01 mGy.cm HISTORY: Chest pain ro PE TECHNIQUE: Multiaxial CT images of the chest were performed following the intravenous administration of contrast to evaluate the pulmonary arteries. Maximal intensity projection images were also obtained. A dose lowering technique was utilized adhering to the principles of ALARA. COMPARISON STUDY: None. FINDINGS: Vascular is unremarkable. Pulmonary vasculature enhances appropriately. There are no filling defects. Findings of congestive heart failure and bilateral pleural effusions. Heart is moderately enlarged. IMPRESSION: 1. Congestive heart failure. 2. Bilateral pleural effusions. 3. Study is negative for pulmonary embolus. Medications Administered Ioversol (Optiray 320 125ml) 96 ml IV ONCE PRN PRN Reason: Interaction Checking Stop: 12/22/18 21:05 Last Admin: 12/18/18 21:06 Dose: 96 ml Documented by: [id number] Discontinued Medications Aspirin (Aspirin) 324 mg PO NOW STA Stop: 12/18/18 19:16 Last Admin: 12/18/18 19:44 Dose: 324 mg Documented by: [id number] Furosemide (Lasix) Confirm Administered Dose 40 mg IV .STK-MED ONE Stop: 12/18/18 22:28 Last Admin: 12/18/18 22:36 Dose: 40 mg Documented by: [id number] Heparin Sodium/Dextrose () 1 ea N/A ONE ONE; Protocol Stop: 12/18/18 22:55 Last Admin: 12/18/18 23:26 Dose: Not Given Documented by: [id number] Heparin Sodium/Dextrose (Heparin Sodium/Dextrose) Confirm Administered Dose 25,000 units IV .STK-MED ONE Stop: 12/18/18 23:11 Last Admin: 12/18/18 23:20 Dose: 25,000 units Documented by: [id number] Cosigned by: [id number] Sodium Chloride (Nss 1000ml) 1,000 mls @ 999 mls/hr IV .Q1H1M MIKE Stop: 12/18/18 20:15 Last Infusion: 12/18/18 21:09 Dose: 0 mls/hr Documented by: [id number] Admin: 12/18/18 20:06 Dose: 999 mls/hr Documented by: [id number] Lorazepam (Ativan) 1 mg in 2 mls @ 2 mls/min IV NOW STA Stop: 12/18/18 19:16 Last Admin: 12/18/18 19:49 Dose: Not Given Documented by: [id number] Furosemide 40 mg/ Syringe 4 mls @ 4 mls/min IV ONE ONE Stop: 12/18/18 22:23 Last Admin: 12/18/18 22:36 Dose: Not Given Documented by: [id number] Lorazepam (Ativan) Confirm Administered Dose 1 mg .ROUTE .STK-MED ONE Stop: 12/18/18 19:47 Last Admin: 12/18/18 19:49 Dose: 1 mg Documented by: [id number] Metoprolol Tartrate (Lopressor) 5 mg IV NOW STA Stop: 12/18/18 22:20 Last Admin: 12/18/18 22:35 Dose: 5 mg Documented by: [id number] Code Status & VTE Plan Code Status Full code Supervising Physician Co-Signing Physician Notes Attending addendum: I have physically seen this patient, have supervised the medical residents activities, and agree with the H&P unless as otherwise noted. Assessment and Plan: Bilateral pleural effusions, right greater than left/new onset CHF/tachycardia with rate dependent lateral ST changes/troponin 0 0.062-- The patient will be admitted to telemetry for serial cardiac enzymes, serial EKG's, cardiac rhythm monitoring and a 2-D echocardiogram with Dopplers. Place on furosemide 40 mg IV twice daily. Lopressor 5 mg IV every 4 hours with hold parameters. Optimize electrolytes Serial BMP and magnesium levels. Consult cardiology. Remainder of orders and notations as noted. Resident Activity Tracking Resident Involvement: Resident Care Provided Care Provided: Adult Hospital Medicine
[2018-12-19] MEDS ORDERED: METOPROLOL TARTRATE 1 MG/ML VIAL IV ONE (02:40)
[2018-12-19] MEDS ORDERED: LORazepam 0.5 MG TAB PO PRN (02:40)
[2018-12-19] MEDS ORDERED: ACETAMINOPHEN 325 MG TAB PO PRN (02:40)
[2018-12-19] MEDS ORDERED: POTASSIUM CITRATE 10 MEQ TAB PO ONE (03:00)
[2018-12-19 03:44] LABS: Magnesium 1.9 mg/dl (1.8-2.4); Troponin I 0.072 ng/ml (0-0.045)
[2018-12-19] MEDS: ENOXAPARIN INJ 30 MG/0.3 ML SYR SQ SCH (07:39)
[2018-12-19] MEDS: FUROSEMIDE 40 MG in SYRINGE 0 ML IV SCH ×2 (07:39→19:21)
[2018-12-19 08:06] LABS: Hematocrit (blood only) 42.7 % (37-47); Hemoglobin 14.3 g/dL (12.0-16.0); Mean Corpuscular Hgb Conc 33.5 g/dL (32-36); Mean Corpuscular Volume 86.4 fL (80-100); Mean Platelet Volume 10.5 fL (7.4-10.4); Platelet Count 325 K/uL (130-400); RDW Coefficient of Variation 14.6 % (11.5-14.5); Red Blood Count 4.94 M/uL (4.2-5.4); White Blood Count 9.63 K/uL (4.8-10.8)
[2018-12-19 08:40] LABS: Albumin Level 3.1 gm/dl (3.4-5.0); BUN Creatinine Ratio 17.5 (10-20); Calcium 8.5 mg/dl (8.5-10.1); Creatinine Clr Calc Pharmacy 68.9 ml/min; Est GFR (African American) 74.5; Est GFR (Non-African American) 64.3; Potassium 3.7 mmol/L (3.5-5.1)
[2018-12-19 08:43] LABS: Albumin Globulin Ratio 0.9 (0.9-2); Globulin 3.5 gm/dl (2.5-4.0); Total Protein 6.6 gm/dl (6.4-8.2)
--- NOTE | 2018-12-19 10:15 | Cardiology Consultation ---
Date of Consultation December 19, 2018 Assessment & Plan (1) Acute congestive heart failure: She presents with what appears to be acute congestive heart failure. The cause is not clear at this time but the most likely cause is the development of a cardiomyopathy (echo pending). Agree with diuresis. (2) Cardiomyopathy: Clinically she appears to have developed a cardiomyopathy, this is based on chest x-ray and her presentation. I do not have the echo result as yet but the echo has been done. If this confirms a cardiomyopathy then it is probably nonischemic, possibly viral in etiology. Although she has low-grade cardiac enzymes I do not suspect this is primarily due to coronary artery disease. We will need to continue beta-blockade, I am going to switch to carvedilol and increase the dose. (3) Tachycardia: She has sinus tachycardia on arrival, the heart rate has improved somewhat but still remains elevated. This is probably due to the cardiomyopathy if that is what she has. This should be treated with beta-blockade. It does not appear to be an abnormal rhythm, it is probably due to catecholamine excess. (4) Edema: She has significant bilateral edema which has accumulated over about 1 week. Although she attributes it to eating a salty sandwich that is probably not the case although perhaps that contributed. I suspect it is due to her congestive heart failure and cardiomyopathy. She will need diuresis. History of Present Illness Reason for Consultation: CHF, tachycardia Attending Physician: Tylor Kaufman MD History of Present Illness This is a very pleasant 58-year-old woman who has had no cardiovascular history that she is aware of. She developed what she calls a cold followed by bronchitis about a month ago, it sounds as though she does describe that in that she had a cough which was quite productive but did not have a lot of shortness of breath until recently. She is a little vague about that but is mostly over the last several days that she has been short of breath with exertion. She denies orthopnea and PND. She does note that she has had leg edema starting about 1 week ago, she attributes it to eating a salty sandwich and saltine crackers. She has had minor edema in the past but nothing like this. She has had no chest discomfort, no palpitations, lightheadedness or dizziness. Parenthetically her reason for admission was actually GI with nausea, vomiting and diarrhea. She feels much better today after initial diuresis. She is currently not short of breath and is sitting comfortably near a window. 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 Recent dyspnea on exertion, no exertional chest pain. No orthopnea or PND, about 1 week of progressive peripheral edema. GI complaints including nausea and vomiting and diarrhea, no bleeding. No neurologic complaints such as TIA or stroke symptoms. Other systems negative. Physical Exam Vital Signs (Past 24 Hours): Last Vital Signs Temp 36.6 C 12/19/18 07:14 Pulse 94 H 12/19/18 07:14 Resp 18 12/19/18 07:14 BP 142/97 H 12/19/18 07:14 Pulse Ox 97 12/19/18 07:14 Physical Exam: Constitutional: Alert, cooperative and in no distress. HEENT: Unremarkable Neck: No jugular venous distention, carotid pulses are normal and equal bilaterally without bruits. Pulmonary: Basilar crackles bilaterally. Cardiac: Regular somewhat rapid rhythm with no murmur, gallop or rub. Abdomen: Soft, nontender with normal bowel sounds. Extremities: +3 bilateral pretibial edema. Distal pulses intact. Neurologic: No focal findings. Gait is steady. Skin: No rash, ecchymoses or petechiae. Results & Data Diagnostic Findings Chest x-ray: At least mild pulmonary edema ECG on arrival: Sinus tachycardia, inferolateral ST-T abnormalities Telemetry: Sinus rhythm 80 to 100, 5 beat run of nonsustained ventricular tachycardia
[2018-12-19] MEDS: CARVEDILOL 12.5 MG TAB PO SCH ×2 (11:56→20:18)
[2018-12-19] MEDS: BENZONATATE 100 MG CAPSULE PO SCH ×3 (13:50→20:18)
--- NOTE | 2018-12-19 17:25 | Family Medicine Progress Note ---
Date of Service December 19, 2018 Assessment & Plan (1) Cough: 58-year-old female was admitted on 19 December 2018 for evaluation of tachycardia, cough, and newly diagnosed CHF with CM. Acute congestive heart failure, bilateral pleural effusions, Cardiomyopathy -No known history of CHF or other cardiac disease. Initial EKG was borderline tachy (99) with ST depressions in V5 and V6. -Troponin held around 0.062, BNP over 19,000. Urine tox screen negative. -X-ray of abdomen with PA chest only suggestive of congestive heart failure/cardiomyopathy, CTA chest noted bilateral pleural effusions. -Appreciate cardiac recs: Started on Carvedilol 12.5 BID, echo shows global hypokinesis, EF 20-25%, lasix 40 IV BID. -We will also order CMV and coxsackie virus testing, GIORGIO level, SPEP/UPEP, iron level, hep C, HIV testing -Continue Lasix 40 mg IV twice daily. Cough, nausea/vomiting, loose stools: -Patient notes the cough for about six weeks now, loose stools on and off since late November, and mostly post-tussive emesis. -No known fevers throughout this time. No known initial infectious exposure. On arrival, afebrile, tachycardic as described below, WBC 11, and a lactate of 2.2--repeat lactate 1.4 -Influenza screen negative. UA was dirty. Urine culture was sent. -CTA chest not suggestive of focal infiltrate. DDx for cough may be an initial URI illness, ongoing bronchitis, or pleural effusions. Hypertension: -Started on carvedilol 12.5 BID Anxiety: -Ativan 0.5 mg PO BID prn anxiety. Hypervolemic Hyponatremia: -Admit sodium 127. Cr 1.04. Repeat Na of 130. -Fluid restriction of 1800cc -Continue to monitor Hypokalemia: -Admit potassium 3.4, possibly due to some fluid losses. Did receive Lasix in the ED for her CHF. -Mag 1.9 -Replace prn, monitor Thrombocytopenia: -Admit platelets 132. Increased to 325 on AM labs. Prolonged QTc: -Initial EKG was QTc 528. Will try to avoid QT-prolonging medications. Elevated bilirubin: -Admit total bilirubin 2.1, direct bilirubin 0.5. INR 1.2. Normal AST, ALT, and AP. May be an inherited issue. -Continue to monitor Code status: Full code. Diet: Heart healthy, 2 gram sodium, fluid restriction. DVT prophy: Lovenox. PT/OT: Deferred. Disbo: Admit to [facility] telemetry. (2) Nausea and vomiting: (3) Loose stools: (4) Tachycardia: (5) Acute congestive heart failure: (6) Bilateral pleural effusion: (7) Hypertension: (8) Anxiety: (9) Hyponatremia: (10) Hypokalemia: (11) Thrombocytopenia: (12) Prolonged QT interval: (13) Elevated bilirubin: Supervising Physician Co-Signing Physician Notes I saw and examined the patient independently. I discussed the plan of care with the resident with the following summary/exceptions: 58yo F w/ no sig PMH who presents with LE swelling, found to have dilated cardiomyopathy. Today, she is feeling well. No shortness of breath. Would like to go home soon. Cough and nausea/diarrhea are largely resolved. 1) Dilated cardiomyopathy - EF 20-25% on echo on 12/19. Currently no clear etiology, though possibly viral from her history. Will check further labs in the AM. Started beta-bethany per cardiology. Possible dc on Entresto in a few days. 2) HTN - Will trend on beta-bethany. Currently normotensive. Subjective Pt reports she feels much better this morning than she did last evening prior to admission. She continues to have episodes of coughing and nausea, but loose stool and vomiting have diminished. She is not currently feeling dyspneic but wonders if she tried to exert herself more if she would become dyspneic. Review of Systems All systems reviewed & are unremarkable except as noted in HPI & below Respiratory: + cough and + dyspnea on exertion Cardiovascular: + dyspnea on exertion and + edema; no chest pain Gastrointestinal: + nausea and + diarrhea/loose stools; no abdominal pain and no vomiting Physical Exam Vital Signs (Past 24 Hours): Last Vital Signs Temp 36.4 C L 12/19/18 15:25 Pulse 83 12/19/18 15:25 Resp 20 12/19/18 15:25 BP 111/77 12/19/18 15:25 Pulse Ox 98 12/19/18 15:25 Constitutional: WD/WN, vitals as above no acute distress and not ill appearing Eyes: PERRL, conjunctivae normal, anicteric sclerae ENMT: external ear and nose normal, oropharynx normal Neck: normal visual inspection Respiratory: normal respiratory effort and + cough; no labored breathing and no retractions Auscultation: + crackles Cardiovascular: Rate/Rhythm: regular rate and regular rhythm Extremities: + pedal edema and + edema (2+ up calf bilaterally); no calf tenderness Gastrointestinal (Abdomen): normal bowel sounds, soft, nontender, no hepatosplenomegaly Skin: no rashes, warm and dry Neurologic: patellar DTR's 2+ bilat, sensation intact Results & Data Laboratory Results 12/19/18 12/19/18 12/19/18 Range/Units 07:52 07:52 07:52 WBC 9.63 (4.8-10.8) K/uL RBC 4.94 (4.2-5.4) M/uL Hgb 14.3 (12.0-16.0) g/dL Hct 42.7 (37-47) % MCV 86.4 (80-100) fL MCH 28.9 (25-34) pg MCHC 33.5 (32-36) g/dL RDW Std Deviation 45.0 (36.4-46.3) fL RDW Coeff of Clemencia 14.6 H (11.5-14.5) % Plt Count 325 (130-400) K/uL MPV 10.5 H (7.4-10.4) fL Immature Gran % (Auto) % Neut % (Auto) % Lymph % (Auto) % [place] % (Auto) % Eos % (Auto) % Baso % (Auto) % Immature Gran # (Auto) (0.00-0.02) K/uL Neut # (Auto) (1.4-6.5) K/uL Lymph # (Auto) (1.2-3.4) K/uL [place] # (Auto) (0.11-0.59) K/uL Eos # (Auto) (0-0.5) K/uL Baso # (Auto) (0-0.2) K/uL PT (9.0-12.0) Seconds INR (0.9-1.1) APTT (21.0-31.0) Seconds PTT Ratio Sodium 130 L (136-145) mmol/L Potassium 3.7 (3.5-5.1) mmol/L Chloride 95 L (98-107) mmol/L Carbon Dioxide 24 (21-32) mmol/L Anion Gap 11.0 (3-11) BUN 17 (7-18) mg/dl Creatinine 0.96 (0.6-1.2) mg/dl Est Cr Clr Drug Dosing 68.9 ml/min Est GFR ( Amer) 74.5 Est GFR (Non-Af Amer) 64.3 BUN/Creatinine Ratio 17.5 (10-20) Glucose 126 H (70-99) mg/dl Osmolality (280-300) mOsm/kg Lactate (0.4-2.0) mmol/L Calcium 8.5 (8.5-10.1) mg/dl Magnesium (1.8-2.4) mg/dl Total Bilirubin 2.0 H (0.2-1) mg/dl Direct Bilirubin (0-0.2) mg/dl AST 24 (15-37) U/L ALT 35 (12-78) U/L Alkaline Phosphatase 90 (45-117) U/L Troponin I 0.064 H* (0-0.045) ng/ml NT-Pro-B Natriuret Pep (0-900) pg/ml Total Protein 6.6 (6.4-8.2) gm/dl Albumin 3.1 L (3.4-5.0) gm/dl Globulin 3.5 (2.5-4.0) gm/dl Albumin/Globulin Ratio 0.9 (0.9-2) Lipase (73-393) U/L Urine Color Urine Appearance (Clear) Urine pH (4.5-7.5) Ur Specific [employer] (1.000-1.030) Urine Protein (Negative) Urine Glucose (UA) (Negative) Urine Ketones (Negative) Urine Blood (Negative) Urine Nitrite (Negative) Urine Bilirubin (Negative) Urine Urobilinogen (Negative) Ur Leukocyte Esterase (Negative) Urine WBC (Auto) (0-5) /hpf Urine RBC (Auto) (0-4) /hpf U Hyaline Cast (Auto) (0-5) /lpf U Epithel Cells (Auto) (0-5) /lpf Urine Bacteria (Auto) (Negative) Ur Renal Epithelial Cell (0-5) /lpf Granular Casts (0) /lpf Waxy Casts (0) /lpf WBC Casts (0) /lpf Urine Opiates Screen (Neg) Ur Methadone, Qual (Neg) Urine Barbiturates (Neg) Ur Phencyclidine (PCP) (Neg) U Amphetamin/Meth Scrn (Neg) MDMA (Ecstasy) Screen (Neg) U Benzodiazepines Scrn (Neg) Ur Cocaine Metabolite (Neg) U Marijuana (THC) Screen (Neg) [place] Type A(2) Ab [place] Type A(4) Ab [place] Type A(7) Ab [place] Type A(9) Ab [place] Type A(10) Ab [place] Type A(16) Ab CMV IgG Ab CMV IgM Ab Influenza Type A (PCR) (Neg) Influenza Type B (PCR) (Neg) 12/19/18 12/19/18 12/19/18 Range/Units 03:09 03:09 03:09 WBC (4.8-10.8) K/uL RBC (4.2-5.4) M/uL Hgb (12.0-16.0) g/dL Hct (37-47) % MCV (80-100) fL MCH (25-34) pg MCHC (32-36) g/dL RDW Std Deviation (36.4-46.3) fL RDW Coeff of Clemencia (11.5-14.5) % Plt Count (130-400) K/uL MPV (7.4-10.4) fL Immature Gran % (Auto) % Neut % (Auto) % Lymph % (Auto) % [place] % (Auto) % Eos % (Auto) % Baso % (Auto) % Immature Gran # (Auto) (0.00-0.02) K/uL Neut # (Auto) (1.4-6.5) K/uL Lymph # (Auto) (1.2-3.4) K/uL [place] # (Auto) (0.11-0.59) K/uL Eos # (Auto) (0-0.5) K/uL Baso # (Auto) (0-0.2) K/uL PT (9.0-12.0) Seconds INR (0.9-1.1) APTT (21.0-31.0) Seconds PTT Ratio Sodium (136-145) mmol/L Potassium (3.5-5.1) mmol/L Chloride (98-107) mmol/L Carbon Dioxide (21-32) mmol/L Anion Gap (3-11) BUN (7-18) mg/dl Creatinine (0.6-1.2) mg/dl Est Cr Clr Drug Dosing ml/min Est GFR ( Amer) Est GFR (Non-Af Amer) BUN/Creatinine Ratio (10-20) Glucose (70-99) mg/dl Osmolality 270 L (280-300) mOsm/kg Lactate (0.4-2.0) mmol/L Calcium (8.5-10.1) mg/dl Magnesium 1.9 (1.8-2.4) mg/dl Total Bilirubin (0.2-1) mg/dl Direct Bilirubin (0-0.2) mg/dl AST (15-37) U/L ALT (12-78) U/L Alkaline Phosphatase (45-117) U/L Troponin I 0.072 H* (0-0.045) ng/ml NT-Pro-B Natriuret Pep (0-900) pg/ml Total Protein (6.4-8.2) gm/dl Albumin (3.4-5.0) gm/dl Globulin (2.5-4.0) gm/dl Albumin/Globulin Ratio (0.9-2) Lipase (73-393) U/L Urine Color Urine Appearance (Clear) Urine pH (4.5-7.5) Ur Specific [employer] (1.000-1.030) Urine Protein (Negative) Urine Glucose (UA) (Negative) Urine Ketones (Negative) Urine Blood (Negative) Urine Nitrite (Negative) Urine Bilirubin (Negative) Urine Urobilinogen (Negative) Ur Leukocyte Esterase (Negative) Urine WBC (Auto) (0-5) /hpf Urine RBC (Auto) (0-4) /hpf U Hyaline Cast (Auto) (0-5) /lpf U Epithel Cells (Auto) (0-5) /lpf Urine Bacteria (Auto) (Negative) Ur Renal Epithelial Cell (0-5) /lpf Granular Casts (0) /lpf Waxy Casts (0) /lpf WBC Casts (0) /lpf Urine Opiates Screen (Neg) Ur Methadone, Qual (Neg) Urine Barbiturates (Neg) Ur Phencyclidine (PCP) (Neg) U Amphetamin/Meth Scrn (Neg) MDMA (Ecstasy) Screen (Neg) U Benzodiazepines Scrn (Neg) Ur Cocaine Metabolite (Neg) U Marijuana (THC) Screen (Neg) [place] Type A(2) Ab Pending [place] Type A(4) Ab Pending [place] Type A(7) Ab Pending [place] Type A(9) Ab Pending [place] Type A(10) Ab Pending [place] Type A(16) Ab Pending CMV IgG Ab Pending CMV IgM Ab Pending Influenza Type A (PCR) (Neg) Influenza Type B (PCR) (Neg) 12/19/18 12/18/18 12/18/18 Range/Units 03:09 20:03 19:50 WBC (4.8-10.8) K/uL RBC (4.2-5.4) M/uL Hgb (12.0-16.0) g/dL Hct (37-47) % MCV (80-100) fL MCH (25-34) pg MCHC (32-36) g/dL RDW Std Deviation (36.4-46.3) fL RDW Coeff of Clemencia (11.5-14.5) % Plt Count (130-400) K/uL MPV (7.4-10.4) fL Immature Gran % (Auto) % Neut % (Auto) % Lymph % (Auto) % [place] % (Auto) % Eos % (Auto) % Baso % (Auto) % Immature Gran # (Auto) (0.00-0.02) K/uL Neut # (Auto) (1.4-6.5) K/uL Lymph # (Auto) (1.2-3.4) K/uL [place] # (Auto) (0.11-0.59) K/uL Eos # (Auto) (0-0.5) K/uL Baso # (Auto) (0-0.2) K/uL PT (9.0-12.0) Seconds INR (0.9-1.1) APTT (21.0-31.0) Seconds PTT Ratio Sodium (136-145) mmol/L Potassium (3.5-5.1) mmol/L Chloride (98-107) mmol/L Carbon Dioxide (21-32) mmol/L Anion Gap (3-11) BUN (7-18) mg/dl Creatinine (0.6-1.2) mg/dl Est Cr Clr Drug Dosing ml/min Est GFR ( Amer) Est GFR (Non-Af Amer) BUN/Creatinine Ratio (10-20) Glucose (70-99) mg/dl Osmolality (280-300) mOsm/kg Lactate 1.4 (0.4-2.0) mmol/L Calcium (8.5-10.1) mg/dl Magnesium (1.8-2.4) mg/dl Total Bilirubin (0.2-1) mg/dl Direct Bilirubin (0-0.2) mg/dl AST (15-37) U/L ALT (12-78) U/L Alkaline Phosphatase (45-117) U/L Troponin I (0-0.045) ng/ml NT-Pro-B Natriuret Pep (0-900) pg/ml Total Protein (6.4-8.2) gm/dl Albumin (3.4-5.0) gm/dl Globulin (2.5-4.0) gm/dl Albumin/Globulin Ratio (0.9-2) Lipase (73-393) U/L Urine Color Yellow Urine Appearance Clear (Clear) Urine pH 5.5 (4.5-7.5) Ur Specific [employer] 1.020 (1.000-1.030) Urine Protein 3+ H (Negative) Urine Glucose (UA) Negative (Negative) Urine Ketones Negative (Negative) Urine Blood Negative (Negative) Urine Nitrite Negative (Negative) Urine Bilirubin Negative (Negative) Urine Urobilinogen Negative (Negative) Ur Leukocyte Esterase 1+ H (Negative) Urine WBC (Auto) 10-30 H (0-5) /hpf Urine RBC (Auto) 0-4 (0-4) /hpf U Hyaline Cast (Auto) >30 H (0-5) /lpf U Epithel Cells (Auto) >30 H (0-5) /lpf Urine Bacteria (Auto) Negative (Negative) Ur Renal Epithelial Cell 0-5 (0-5) /lpf Granular Casts 1-5 H (0) /lpf Waxy Casts 1-5 H (0) /lpf WBC Casts 1-5 H (0) /lpf Urine Opiates Screen (Neg) Ur Methadone, Qual (Neg) Urine Barbiturates (Neg) Ur Phencyclidine (PCP) (Neg) U Amphetamin/Meth Scrn (Neg) MDMA (Ecstasy) Screen (Neg) U Benzodiazepines Scrn (Neg) Ur Cocaine Metabolite (Neg) U Marijuana (THC) Screen (Neg) [place] Type A(2) Ab [place] Type A(4) Ab [place] Type A(7) Ab [place] Type A(9) Ab [place] Type A(10) Ab [place] Type A(16) Ab CMV IgG Ab CMV IgM Ab Influenza Type A (PCR) Neg for Influ A (Neg) Influenza Type B (PCR) Neg for Influ B (Neg) 12/18/18 12/18/18 12/18/18 Range/Units 19:50 19:36 19:36 WBC (4.8-10.8) K/uL RBC (4.2-5.4) M/uL Hgb (12.0-16.0) g/dL Hct (37-47) % MCV (80-100) fL MCH (25-34) pg MCHC (32-36) g/dL RDW Std Deviation (36.4-46.3) fL RDW Coeff of Clemencia (11.5-14.5) % Plt Count (130-400) K/uL MPV (7.4-10.4) fL Immature Gran % (Auto) % Neut % (Auto) % Lymph % (Auto) % [place] % (Auto) % Eos % (Auto) % Baso % (Auto) % Immature Gran # (Auto) (0.00-0.02) K/uL Neut # (Auto) (1.4-6.5) K/uL Lymph # (Auto) (1.2-3.4) K/uL [place] # (Auto) (0.11-0.59) K/uL Eos # (Auto) (0-0.5) K/uL Baso # (Auto) (0-0.2) K/uL PT (9.0-12.0) Seconds INR (0.9-1.1) APTT (21.0-31.0) Seconds PTT Ratio Sodium 127 L (136-145) mmol/L Potassium 3.4 L (3.5-5.1) mmol/L Chloride 91 L (98-107) mmol/L Carbon Dioxide 21 (21-32) mmol/L Anion Gap 15.0 H (3-11) BUN 17 (7-18) mg/dl Creatinine 1.04 (0.6-1.2) mg/dl Est Cr Clr Drug Dosing 64.0 ml/min Est GFR ( Amer) 67.6 Est GFR (Non-Af Amer) 58.4 BUN/Creatinine Ratio 15.9 (10-20) Glucose 132 H (70-99) mg/dl Osmolality (280-300) mOsm/kg Lactate 2.2 H* (0.4-2.0) mmol/L Calcium 8.8 (8.5-10.1) mg/dl Magnesium (1.8-2.4) mg/dl Total Bilirubin 2.1 H (0.2-1) mg/dl Direct Bilirubin 0.5 H (0-0.2) mg/dl AST 24 (15-37) U/L ALT 39 (12-78) U/L Alkaline Phosphatase 104 (45-117) U/L Troponin I 0.062 H* (0-0.045) ng/ml NT-Pro-B Natriuret Pep 86225 H (0-900) pg/ml Total Protein 7.3 (6.4-8.2) gm/dl Albumin 3.5 (3.4-5.0) gm/dl Globulin (2.5-4.0) gm/dl Albumin/Globulin Ratio (0.9-2) Lipase 81 (73-393) U/L Urine Color Urine Appearance (Clear) Urine pH (4.5-7.5) Ur Specific [employer] (1.000-1.030) Urine Protein (Negative) Urine Glucose (UA) (Negative) Urine Ketones (Negative) Urine Blood (Negative) Urine Nitrite (Negative) Urine Bilirubin (Negative) Urine Urobilinogen (Negative) Ur Leukocyte Esterase (Negative) Urine WBC (Auto) (0-5) /hpf Urine RBC (Auto) (0-4) /hpf U Hyaline Cast (Auto) (0-5) /lpf U Epithel Cells (Auto) (0-5) /lpf Urine Bacteria (Auto) (Negative) Ur Renal Epithelial Cell (0-5) /lpf Granular Casts (0) /lpf Waxy Casts (0) /lpf WBC Casts (0) /lpf Urine Opiates Screen Neg (Neg) Ur Methadone, Qual Neg (Neg) Urine Barbiturates Neg (Neg) Ur Phencyclidine (PCP) Neg (Neg) U Amphetamin/Meth Scrn Neg (Neg) MDMA (Ecstasy) Screen Neg (Neg) U Benzodiazepines Scrn Neg (Neg) Ur Cocaine Metabolite Neg (Neg) U Marijuana (THC) Screen Neg (Neg) [place] Type A(2) Ab [place] Type A(4) Ab [place] Type A(7) Ab [place] Type A(9) Ab [place] Type A(10) Ab [place] Type A(16) Ab CMV IgG Ab CMV IgM Ab Influenza Type A (PCR) (Neg) Influenza Type B (PCR) (Neg) 12/18/18 12/18/18 Range/Units 19:36 19:36 WBC 11.46 H (4.8-10.8) K/uL RBC 5.00 (4.2-5.4) M/uL Hgb 14.6 (12.0-16.0) g/dL Hct 43.0 (37-47) % MCV 86.0 (80-100) fL MCH 29.2 (25-34) pg MCHC 34.0 (32-36) g/dL RDW Std Deviation 44.4 (36.4-46.3) fL RDW Coeff of Clemencia 14.4 (11.5-14.5) % Plt Count 338 (130-400) K/uL MPV 10.5 H (7.4-10.4) fL Immature Gran % (Auto) 0.3 % Neut % (Auto) 72.9 % Lymph % (Auto) 19.5 % [place] % (Auto) 6.4 % Eos % (Auto) 0.7 % Baso % (Auto) 0.2 % Immature Gran # (Auto) 0.04 H (0.00-0.02) K/uL Neut # (Auto) 8.36 H (1.4-6.5) K/uL Lymph # (Auto) 2.23 (1.2-3.4) K/uL [place] # (Auto) 0.73 H (0.11-0.59) K/uL Eos # (Auto) 0.08 (0-0.5) K/uL Baso # (Auto) 0.02 (0-0.2) K/uL PT 12.1 H (9.0-12.0) Seconds INR 1.2 H (0.9-1.1) APTT 24.9 (21.0-31.0) Seconds PTT Ratio 0.9 Sodium (136-145) mmol/L Potassium (3.5-5.1) mmol/L Chloride (98-107) mmol/L Carbon Dioxide (21-32) mmol/L Anion Gap (3-11) BUN (7-18) mg/dl Creatinine (0.6-1.2) mg/dl Est Cr Clr Drug Dosing ml/min Est GFR ( Amer) Est GFR (Non-Af Amer) BUN/Creatinine Ratio (10-20) Glucose (70-99) mg/dl Osmolality (280-300) mOsm/kg Lactate (0.4-2.0) mmol/L Calcium (8.5-10.1) mg/dl Magnesium (1.8-2.4) mg/dl Total Bilirubin (0.2-1) mg/dl Direct Bilirubin (0-0.2) mg/dl AST (15-37) U/L ALT (12-78) U/L Alkaline Phosphatase (45-117) U/L Troponin I (0-0.045) ng/ml NT-Pro-B Natriuret Pep (0-900) pg/ml Total Protein (6.4-8.2) gm/dl Albumin (3.4-5.0) gm/dl Globulin (2.5-4.0) gm/dl Albumin/Globulin Ratio (0.9-2) Lipase (73-393) U/L Urine Color Urine Appearance (Clear) Urine pH (4.5-7.5) Ur Specific [employer] (1.000-1.030) Urine Protein (Negative) Urine Glucose (UA) (Negative) Urine Ketones (Negative) Urine Blood (Negative) Urine Nitrite (Negative) Urine Bilirubin (Negative) Urine Urobilinogen (Negative) Ur Leukocyte Esterase (Negative) Urine WBC (Auto) (0-5) /hpf Urine RBC (Auto) (0-4) /hpf U Hyaline Cast (Auto) (0-5) /lpf U Epithel Cells (Auto) (0-5) /lpf Urine Bacteria (Auto) (Negative) Ur Renal Epithelial Cell (0-5) /lpf Granular Casts (0) /lpf Waxy Casts (0) /lpf WBC Casts (0) /lpf Urine Opiates Screen (Neg) Ur Methadone, Qual (Neg) Urine Barbiturates (Neg) Ur Phencyclidine (PCP) (Neg) U Amphetamin/Meth Scrn (Neg) MDMA (Ecstasy) Screen (Neg) U Benzodiazepines Scrn (Neg) Ur Cocaine Metabolite (Neg) U Marijuana (THC) Screen (Neg) [place] Type A(2) Ab [place] Type A(4) Ab [place] Type A(7) Ab [place] Type A(9) Ab [place] Type A(10) Ab [place] Type A(16) Ab CMV IgG Ab CMV IgM Ab Influenza Type A (PCR) (Neg) Influenza Type B (PCR) (Neg) Medications Administered Current Inpatient Medications Acetaminophen (Tylenol) 650 mg PO Q4H PRN PRN Reason: Pain or Fever Stop: 01/18/19 02:39 Benzonatate (Tessalon Perle) 200 mg PO TID [facility] Stop: 01/18/19 13:59 Last Admin: 12/19/18 16:58 Dose: 200 mg Documented by: Carvedilol (Coreg) 12.5 mg PO BID [facility] Stop: 01/18/19 10:29 Last Admin: 12/19/18 11:56 Dose: 12.5 mg Documented by: Enoxaparin Sodium (Lovenox) 30 mg SQ Q24H [facility] Stop: 01/18/19 02:39 Last Admin: 12/19/18 07:39 Dose: 30 mg Documented by: Furosemide 40 mg/ Syringe 4 mls @ 4 mls/min IV Q12 [facility] Stop: 01/18/19 08:59 Last Admin: 12/19/18 07:39 Dose: 4 mls/min Documented by: Lorazepam (Ativan) 0.5 mg PO Q12H PRN PRN Reason: Anxiety Stop: 01/18/19 02:39 Resident Activity Tracking Resident Involvement: Resident Care Provided Care Provided: Adult Hospital Medicine
[2018-12-20 07:39] LABS: Hematocrit (blood only) 39.7 % (37-47); Hemoglobin 13.3 g/dL (12.0-16.0); Mean Corpuscular Hgb Conc 33.5 g/dL (32-36); Mean Corpuscular Volume 84.8 fL (80-100); Mean Platelet Volume 10.4 fL (7.4-10.4); Platelet Count 278 K/uL (130-400); RDW Coefficient of Variation 14.4 % (11.5-14.5); RDW Standard Deviation 44.3 fL (36.4-46.3); Red Blood Count 4.68 M/uL (4.2-5.4); White Blood Count 15.06 K/uL (4.8-10.8)
[2018-12-20] MEDS: FUROSEMIDE 40 MG in SYRINGE 0 ML IV SCH ×2 (08:10→20:29)
[2018-12-20] MEDS: CARVEDILOL 12.5 MG TAB PO SCH ×2 (08:10→20:30)
[2018-12-20] MEDS: ENOXAPARIN INJ 30 MG/0.3 ML SYR SQ SCH (08:10)
[2018-12-20] MEDS: BENZONATATE 100 MG CAPSULE PO SCH ×3 (08:11→20:32)
[2018-12-20 08:12] LABS: BUN Creatinine Ratio 21.7 (10-20); Calcium 7.9 mg/dl (8.5-10.1); Creatinine Clr Calc Pharmacy 62.3 ml/min; Est GFR (African American) 66.1; Magnesium 1.8 mg/dl (1.8-2.4); Potassium 3.2 mmol/L (3.5-5.1)
[2018-12-20 08:23] LABS: Ferritin 22.6 ng/ml (8-388)
[2018-12-20] MEDS ORDERED: POTASSIUM CHLORIDE 20 MEQ TABCR PO STA (09:13)
--- NOTE | 2018-12-20 12:44 | Cardiology Progress Note ---
Date of Service December 20, 2018 Assessment & Plan (1) Acute congestive heart failure: She presents with what appears to be acute congestive heart failure. The cause is not clear at this time but the most likely cause is the development of a cardiomyopathy which is probably recent in origin. Agree with diuresis. (2) Cardiomyopathy: Clinically she appears to have developed a cardiomyopathy recently, this is based on chest x-ray and her presentation. Her left ventricular function is markedly reduced but we do not have a prior comparison. The cardiomyopathy is probably nonischemic, possibly viral in etiology. Although she has low-grade cardiac enzymes I do not suspect this is primarily due to coronary artery disease. We will need some type of ischemic workup, probably a stress test, but I would not do that as yet. We will need to continue beta-blockade, I am going to use carvedilol but would not change the dose. She also should be on an GIORGIO inhibitor, I am going to start Entresto. (3) Tachycardia: She has sinus tachycardia on arrival, the heart rate has improved markedly. This is probably due to the cardiomyopathy. This should be treated with beta-blockade. It does not appear to be an abnormal rhythm, it is probably due to catecholamine excess. (4) Edema: She has significant bilateral edema which has accumulated over about 1 week. Although she attributes it to eating a salty sandwich that is probably not the case although perhaps that contributed. I suspect it is due to her congestive heart failure and cardiomyopathy. She will need continued diuresis although it is improving but it will take some time. (5) NSVT (nonsustained ventricular tachycardia): She had a run of nonsustained ventricular tachycardia on telemetry. This is a little bit worrisome given the degree of her left ventricular dysfunction. We may need to consider LifeVest at the time of discharge. Subjective He is feeling much better today after diuresis, her breathing is much improved and she has lost fluid in her legs. She is however drinking a lot of water out of habit and seems unaware that she should not do that. Physical Exam Vital Signs (Past 24 Hours): Last Vital Signs Temp 36.7 C 12/20/18 12:00 Pulse 89 12/20/18 12:00 Resp 18 12/20/18 12:00 BP 115/77 12/20/18 12:00 Pulse Ox 99 12/20/18 12:00 Physical Exam: Constitutional: Alert, cooperative and in no distress. Pulmonary: Clear to auscultation bilaterally but with decreased breath sounds bilaterally at the bases. Cardiac: Regular rhythm with no murmur, gallop or rub. Abdomen: Soft, nontender with normal bowel sounds. Extremities: +2 bilateral pretibial edema. Skin: No rash, ecchymoses or petechiae. Results & Data Diagnostic Findings Telemetry: Sinus rhythm, rate improved. One run of nonsustained ventricular tachycardia.
[2018-12-20] MEDS: SACUBITRIL-VALSARTAN 24-26 MG TAB PO SCH ×2 (13:41→20:29)
--- NOTE | 2018-12-20 14:25 | Family Medicine Progress Note ---
Date of Service December 20, 2018 Assessment & Plan (1) Cough: 58-year-old female was admitted on 19 December 2018 for evaluation of tachycardia, cough, and newly diagnosed CHF with CM. Acute congestive heart failure, bilateral pleural effusions, Cardiomyopathy -No known history of CHF or other cardiac disease. -Troponin held around 0.062, BNP on admission over 19,000. Urine tox screen negative. -X-ray suggestive of congestive heart failure/cardiomyopathy, CTA chest noted bilateral pleural effusions. -Appreciate cardiac recs: Started on Carvedilol 12.5 BID, echo shows global hypokinesis, EF 20-25%, lasix 40 IV BID. -Expect to discharge home tomorrow, with PO lasix 40mg daily x ~2weeks. Recheck BMP mid-week. -Hep C neg, iron level mildly low but other iron panel WNL, TSH normal. Discussed IV iron, patient defers at this time. -Awaiting CMV and coxsackie virus testing, GIORGIO level, SPEP/UPEP Cough, nausea/vomiting, loose stools: -Patient notes the cough for about six weeks now, loose stools on and off since late November, and mostly post-tussive emesis. -No known fevers throughout this time. No known initial infectious exposure. On arrival, afebrile, tachycardic as described below, WBC 11, and a lactate of 2.2--repeat lactate 1.4 -Influenza screen negative. UA was dirty. Urine culture was sent, growing gamma strep not enterococcus. Pt asymptomatic, will not treat at this time. -CTA chest not suggestive of focal infiltrate. DDx for cough may be an initial URI illness, ongoing bronchitis, or pleural effusions. Hypertension: -Started on carvedilol 12.5 BID Anxiety: -Ativan 0.5 mg PO BID prn anxiety. Hypervolemic Hyponatremia: -Admit sodium 127. Cr 1.04. Repeat Na of 131. -Fluid restriction of 1800cc, low salt diet -Continue to monitor Hypokalemia: -Admit potassium 3.4, possibly due to some fluid losses. Did receive Lasix in the ED for her CHF. -Mag 1.9 -Replace prn, monitor Thrombocytopenia: -Admit platelets 132. Increased to 325. Prolonged QTc: -Initial EKG was QTc 528. Will try to avoid QT-prolonging medications. Elevated bilirubin: -Admit total bilirubin 2.1, direct bilirubin 0.5. INR 1.2. Normal AST, ALT, and AP. May be an inherited issue. -Continue to monitor Code status: Full code. Diet: Heart healthy, 2 gram sodium, fluid restriction. DVT prophy: Lovenox. PT/OT: Deferred. Dispo: Admit to [facility] telemetry, likely home tomorrow. Needs new PCP, given some names at [facility] clinic. (2) Nausea and vomiting: (3) Loose stools: (4) Tachycardia: (5) Acute congestive heart failure: (6) Bilateral pleural effusion: (7) Hypertension: (8) Anxiety: (9) Hyponatremia: (10) Hypokalemia: (11) Thrombocytopenia: (12) Prolonged QT interval: (13) Elevated bilirubin: Supervising Physician Co-Signing Physician Notes I saw and examined the patient independently. I discussed the plan of care with the resident with the following summary/exceptions: 58yo F w/ no sig PMH who presents with LE swelling, found to have dilated card iomyopathy. Today, she is feeling well. No shortness of breath. Cough and nausea/diarrhea are largely resolved, though still come occasionally. Swelling is improving. 1) Dilated cardiomyopathy - EF 20-25% on echo on 12/19. Currently no clear etiology, though possibly viral from her history. TSH & iron panel normal with further testing pending. Started beta-bethany and Entresto per cardiology. 2) NSVT - Overnight of 12/19-12/20. Cardiology considering a LifeVest on discharge. 3) HTN - Will trend on beta-bethany and Entresto. Currently normotensive. Subjective Pt reports she feels a little better this morning compared to yesterday. She continues to have episodes of coughing but denies nausea. She is not currently feeling dyspneic. Respiratory: + cough and + dyspnea on exertion Cardiovascular: + dyspnea on exertion and + edema; no chest pain Gastrointestinal: no abdominal pain and no vomiting Physical Exam Vital Signs (Past 24 Hours): Last Vital Signs Temp 36.7 C 12/20/18 12:00 Pulse 89 12/20/18 12:00 Resp 18 12/20/18 12:00 BP 115/77 12/20/18 12:00 Pulse Ox 99 12/20/18 12:00 Constitutional: WD/WN, vitals as above no acute distress and not ill appearing Eyes: PERRL, conjunctivae normal, anicteric sclerae ENMT: external ear and nose normal, oropharynx normal Neck: normal visual inspection Respiratory: normal respiratory effort; no labored breathing and no retractions Auscultation: + crackles Cardiovascular: Rate/Rhythm: regular rate and regular rhythm Extremities: + pedal edema and + edema (2+ up calf bilaterally); no calf tenderness Gastrointestinal (Abdomen): normal bowel sounds, soft, nontender, no hepatosplenomegaly Skin: no rashes, warm and dry Neurologic: patellar DTR's 2+ bilat, sensation intact Results & Data Laboratory Results 12/20/18 12/20/18 12/20/18 Range/Units 07:25 07:25 07:25 WBC (4.8-10.8) K/uL RBC (4.2-5.4) M/uL Hgb (12.0-16.0) g/dL Hct (37-47) % MCV (80-100) fL MCH (25-34) pg MCHC (32-36) g/dL RDW Std Deviation (36.4-46.3) fL RDW Coeff of Clemencia (11.5-14.5) % Plt Count (130-400) K/uL MPV (7.4-10.4) fL Sodium 131 L (136-145) mmol/L Potassium 3.2 L (3.5-5.1) mmol/L Chloride 95 L (98-107) mmol/L Carbon Dioxide 26 (21-32) mmol/L Anion Gap 10.0 (3-11) BUN 23 H (7-18) mg/dl Creatinine 1.06 (0.6-1.2) mg/dl Est Cr Clr Drug Dosing 62.3 ml/min Est GFR ( Amer) 66.1 Est GFR (Non-Af Amer) 57.0 BUN/Creatinine Ratio 21.7 H (10-20) Glucose 99 (70-99) mg/dl Calcium 7.9 L (8.5-10.1) mg/dl Magnesium 1.8 (1.8-2.4) mg/dl Iron 26 L (35-150) mcg/dl Ferritin 22.6 (8-388) ng/ml Total Protein (PEP) Pending Albumin (PEP) Pending Mwnty-5-Xvpdrwepo Pending Jpgry-8-Jwioiashf Pending Igvl-0-Lvsrvpur Pending Tzrs-6-Kifaoill Pending Gamma Globulins Pending Monoclonal Peak 3 Pending Ser Monoclonl Protein Pending Ser Monoclonal Prot 2 Pending PEP Interpretation Pending Angiotensin Convert Enz Pending TSH 1.210 (0.300-4.500) uIu/ml U Random Total Protein Ur Creatinine mg/dL Protein/Creatinin Ratio Urine Albumin (%) U Kxnvk-9-Rsscurjk (%) U Oawhj-4-Drfpaxpb (%) U Beta Globulin (%) U Gamma Globulin (%) Urine PEP Interpret Hepatitis C Antibody Neg (Neg) 12/20/18 12/20/18 Range/Units 07:25 04:30 WBC 15.06 H (4.8-10.8) K/uL RBC 4.68 (4.2-5.4) M/uL Hgb 13.3 (12.0-16.0) g/dL Hct 39.7 (37-47) % MCV 84.8 (80-100) fL MCH 28.4 (25-34) pg MCHC 33.5 (32-36) g/dL RDW Std Deviation 44.3 (36.4-46.3) fL RDW Coeff of Clemencia 14.4 (11.5-14.5) % Plt Count 278 (130-400) K/uL MPV 10.4 (7.4-10.4) fL Sodium (136-145) mmol/L Potassium (3.5-5.1) mmol/L Chloride (98-107) mmol/L Carbon Dioxide (21-32) mmol/L Anion Gap (3-11) BUN (7-18) mg/dl Creatinine (0.6-1.2) mg/dl Est Cr Clr Drug Dosing ml/min Est GFR ( Amer) Est GFR (Non-Af Amer) BUN/Creatinine Ratio (10-20) Glucose (70-99) mg/dl Calcium (8.5-10.1) mg/dl Magnesium (1.8-2.4) mg/dl Iron (35-150) mcg/dl Ferritin (8-388) ng/ml Total Protein (PEP) Albumin (PEP) Rjwem-7-Qmbfzywiq Trmrh-0-Heehunlsc Axgg-3-Qwavyzem Gfgm-1-Jfzqpikk Gamma Globulins Monoclonal Peak 3 Ser Monoclonl Protein Ser Monoclonal Prot 2 PEP Interpretation Angiotensin Convert Enz TSH (0.300-4.500) uIu/ml U Random Total Protein Pending Ur Creatinine mg/dL Pending Protein/Creatinin Ratio Pending Urine Albumin (%) Pending U Awnbf-4-Ximahpjs (%) Pending U Qfhdq-8-Wawnpckl (%) Pending U Beta Globulin (%) Pending U Gamma Globulin (%) Pending Urine PEP Interpret Pending Hepatitis C Antibody (Neg) Medications Administered Current Inpatient Medications Acetaminophen (Tylenol) 650 mg PO Q4H PRN PRN Reason: Pain or Fever Stop: 01/18/19 02:39 Benzonatate (Tessalon Perle) 200 mg PO TID [facility] Stop: 01/18/19 13:59 Last Admin: 12/20/18 11:56 Dose: Not Given Documented by: Carvedilol (Coreg) 12.5 mg PO BID [facility] Stop: 01/18/19 10:29 Last Admin: 12/20/18 08:10 Dose: 12.5 mg Documented by: Enoxaparin Sodium (Lovenox) 30 mg SQ Q24H [facility] Stop: 01/18/19 02:39 Last Admin: 12/20/18 08:10 Dose: 30 mg Documented by: Furosemide 40 mg/ Syringe 4 mls @ 4 mls/min IV Q12 MIKE Stop: 01/18/19 08:59 Last Admin: 12/20/18 08:10 Dose: 4 mls/min Documented by: Lorazepam (Ativan) 0.5 mg PO Q12H PRN PRN Reason: Anxiety Stop: 01/18/19 02:39 Sacubitril/Valsartan (Entresto 24/26mg) 1 tab PO BID [facility] Stop: 01/19/19 12:59 Last Admin: 12/20/18 13:41 Dose: 1 tab Documented by: Resident Activity Tracking Resident Involvement: Resident Care Provided Care Provided: Adult Hospital Medicine
[2018-12-20] MEDS ORDERED: CALCIUM CARBONATE 500 MG CHEWABLE TAB PO PRN (20:30)
[2018-12-21 06:24] LABS: Basophils # (auto) 0.01 K/uL (0-0.2); Basophils % (auto) 0.1 %; Eosinophils # (auto) 0.04 K/uL (0-0.5); Eosinophils % (auto) 0.3 %; Hematocrit (blood only) 40.6 % (37-47); Hemoglobin 13.5 g/dL (12.0-16.0); Immature Granulocytes # (auto) 0.04 K/uL (0.00-0.02); Immature Granulocytes % (auto) 0.3 %; Lymphocytes # (auto) 0.95 K/uL (1.2-3.4); Lymphocytes % (auto) 6.6 %; Mean Corpuscular Hgb Conc 33.3 g/dL (32-36); Mean Corpuscular Volume 85.8 fL (80-100); Mean Platelet Volume 10.4 fL (7.4-10.4); Monocytes # (auto) 1.07 K/uL (0.11-0.59); Monocytes % (auto) 7.4 %; Neutrophils # (auto) 12.35 K/uL (1.4-6.5); Neutrophils % (auto) 85.3 %; Platelet Count 254 K/uL (130-400); RDW Coefficient of Variation 14.5 % (11.5-14.5); RDW Standard Deviation 44.9 fL (36.4-46.3); Red Blood Count 4.73 M/uL (4.2-5.4); White Blood Count 14.46 K/uL (4.8-10.8)
[2018-12-21 06:52] LABS: Calcium 7.8 mg/dl (8.5-10.1); Creatinine Clr Calc Pharmacy 69.6 ml/min; Est GFR (African American) 77.4; Est GFR (Non-African American) 66.8; Potassium 3.1 mmol/L (3.5-5.1)
[2018-12-21] MEDS ORDERED: POTASSIUM CHLORIDE 20 MEQ TABCR PO STA (07:37)
[2018-12-21] MEDS: CARVEDILOL 12.5 MG TAB PO SCH ×2 (08:18→20:09)
[2018-12-21] MEDS: FUROSEMIDE 40 MG in SYRINGE 0 ML IV SCH ×2 (08:18→20:09)
[2018-12-21] MEDS: SACUBITRIL-VALSARTAN 24-26 MG TAB PO SCH ×2 (08:18→20:09)
[2018-12-21] MEDS: ENOXAPARIN INJ 30 MG/0.3 ML SYR SQ SCH (08:19)
[2018-12-21] MEDS: BENZONATATE 100 MG CAPSULE PO SCH ×3 (08:19→20:09)
--- NOTE | 2018-12-21 14:14 | Cardiology Progress Note ---
Date of Service December 21, 2018 Assessment & Plan (1) Acute congestive heart failure: She presents with what appears to be acute congestive heart failure. The cause is most likely cause is the development of a cardiomyopathy which is probably recent in origin. Agree with continued diuresis. (2) Cardiomyopathy: Clinically she appears to have developed a cardiomyopathy recently, this is based on her symptoms, chest x-ray and her presentation. Her left ventricular function is markedly reduced but we do not have a prior comparison. The cardiomyopathy is probably nonischemic, possibly viral in etiology. Although she has low-grade cardiac enzymes I do not suspect this is primarily due to coronary artery disease. We will need some type of ischemic workup, probably a stress test, but I would not do that as yet, probably as an outpatient. We will need to continue beta-blockade, I am going to use carvedilol but would not change the dose. She also should be on an GIORGIO inhibitor, I did start Entresto which so far she is tolerating well. (3) Tachycardia: She has sinus tachycardia on arrival, the heart rate has improved markedly. This was probably due to the cardiomyopathy. This should be treated with beta-blockade. It does not appear to be an abnormal rhythm, it was probably due to catecholamine excess. (4) Edema: She still has significant bilateral edema although it is improved. Although she attributes it to eating a salty sandwich that is probably not the case although perhaps that contributed, she should avoid salty foods. She will need continued diuresis although it is improving but it will take some time. (5) NSVT (nonsustained ventricular tachycardia): She had a run of nonsustained ventricular tachycardia on telemetry yesterday afternoon. This is a little bit worrisome given the degree of her left ventricular dysfunction. We should consider a LifeVest at the time of discharge, she can wear this for up to 3 months during which time we can determine whether she needs an implantable ICD. Subjective She is feeling much better, her breathing is much improved and she has lost fluid in her legs. She has been watching her fluid intake and she does not have heart failure symptoms such as orthopnea or PND. Physical Exam Vital Signs (Past 24 Hours): Last Vital Signs Temp 36.8 C 12/21/18 11:45 Pulse 80 12/21/18 11:38 Resp 16 12/21/18 11:38 BP 108/73 12/21/18 11:38 Pulse Ox 98 12/21/18 11:38 Physical Exam: Constitutional: Alert, cooperative and in no distress. Pulmonary: Clear to auscultation bilaterally. Cardiac: Regular rhythm with no murmur, gallop or rub. Abdomen: Soft, nontender with normal bowel sounds. Extremities: +2 bilateral pretibial edema. Skin: No rash, ecchymoses or petechiae. Results & Data Diagnostic Findings Telemetry: Sinus rhythm, no NSVT since yesterday
--- NOTE | 2018-12-21 15:49 | Family Medicine Progress Note ---
Date of Service December 21, 2018 Assessment & Plan (1) Acute congestive heart failure: 58-year-old female with no significant past medical history presents with new CHF with cardiomyopathy, likely secondary to infectious causes. Acute systolic congestive heart failure, cardiomyopathy in the setting of recent viral symptoms Patient presented with bilateral pleural effusions and pulmonary edema. Was found to have a BNP greater than 19,000 Cardiology following, appreciate recommendations Continue carvedilol 12.5 mg twice daily, Lasix 40 mg IV twice daily, Entresto Cardiology would like to do a outpatient ischemic workup, stress test, although congestive heart failure likely secondary to viral illness Follow-up with CHF clinic Non-sustained V. tach We will arrange LifeVest for outpatient as the patient is vulnerable for fatal arrhythmia at this time Cough/diarrhea Symptoms of viral illness for 6 weeks, CMV, coxsackie's pending. Flu and hep C negative DVT prophylaxis Lovenox FEN Heart healthy (2) NSVT (nonsustained ventricular tachycardia): (3) Edema: (4) Cardiomyopathy: (5) Hypertension: (6) Hypokalemia: (7) Hyponatremia: (8) Bilateral pleural effusion: (9) Nausea and vomiting: (10) Cough: (11) Loose stools: (12) Non-ST elevation [place] (NSTEMI): Supervising Physician Co-Signing Physician Notes Resident Physician Supervision Note: I independently interviewed and examined the patient and verified the royal history and physical, reviewed labs and image studies, discussed the case with the resident Dr. Mora and agree with the findings and care plan. Subjective 58-year-old female with no significant past medical history presents with new CHF with cardiomyopathy, likely secondary to infectious causes. She states that over the past week she has had both the stomach virus and URI symptoms. This morning she is doing well. She states that the edema in her legs is improved. She denies any acute complaints. She is tolerating regular diet and is able to get up and down without dyspnea. Review of systems Constitutional; no fevers, chills, night sweats HEENT; no sore throat, no runny nose, no cough Chest; no shortness of breath, no chest pain, no palpitations Abdomen; no abdominal pain, no nausea/vomiting/diarrhea Physical Exam Vital Signs (Past 24 Hours): Last Vital Signs Temp 36.8 C 12/21/18 11:45 Pulse 92 H 12/21/18 14:19 Resp 16 12/21/18 11:38 BP 108/73 12/21/18 11:38 Pulse Ox 98 12/21/18 11:38 Constitutional: WD/WN, vitals as above Eyes: PERRL, conjunctivae normal, anicteric sclerae ENMT: external ear and nose normal, oropharynx normal Neck: trachea midline, no thyromegaly Respiratory: normal respiratory effort, lungs clear to auscultation Cardiovascular: RRR, no murmur, no edema 1+ edema in bilateral lower extremities Gastrointestinal (Abdomen): normal bowel sounds, soft, nontender, no h epatosplenomegaly Musculoskeletal: no cyanosis or clubbing, extremities motor strength 5/5 Skin: no rashes, warm and dry Results & Data Laboratory Results Laboratory Last Values WBC 14.46 K/uL (4.8-10.8) H 12/21/18 05:59 RBC 4.73 M/uL (4.2-5.4) 12/21/18 05:59 Hgb 13.5 g/dL (12.0-16.0) 12/21/18 05:59 Hct 40.6 % (37-47) 12/21/18 05:59 MCV 85.8 fL (80-100) 12/21/18 05:59 MCH 28.5 pg (25-34) 12/21/18 05:59 MCHC 33.3 g/dL (32-36) 12/21/18 05:59 RDW Std Deviation 44.9 fL (36.4-46.3) 12/21/18 05:59 RDW Coeff of Clemencia 14.5 % (11.5-14.5) 12/21/18 05:59 Plt Count 254 K/uL (130-400) 12/21/18 05:59 MPV 10.4 fL (7.4-10.4) 12/21/18 05:59 Immature Gran % (Auto) 0.3 % 12/21/18 05:59 Neut % (Auto) 85.3 % 12/21/18 05:59 Lymph % (Auto) 6.6 % 12/21/18 05:59 Emanuel % (Auto) 7.4 % 12/21/18 05:59 Eos % (Auto) 0.3 % 12/21/18 05:59 Baso % (Auto) 0.1 % 12/21/18 05:59 Immature Gran # (Auto) 0.04 K/uL (0.00-0.02) H 12/21/18 05:59 Neut # (Auto) 12.35 K/uL (1.4-6.5) H 12/21/18 05:59 Lymph # (Auto) 0.95 K/uL (1.2-3.4) L 12/21/18 05:59 Emanuel # (Auto) 1.07 K/uL (0.11-0.59) H 12/21/18 05:59 Eos # (Auto) 0.04 K/uL (0-0.5) 12/21/18 05:59 Baso # (Auto) 0.01 K/uL (0-0.2) 12/21/18 05:59 PT 12.1 Seconds (9.0-12.0) H 12/18/18 19:36 INR 1.2 (0.9-1.1) H 12/18/18 19:36 APTT 24.9 Seconds (21.0-31.0) 12/18/18 19:36 PTT Ratio 0.9 12/18/18 19:36 Sodium 133 mmol/L (136-145) L 12/21/18 05:59 Potassium 3.1 mmol/L (3.5-5.1) L 12/21/18 05:59 Chloride 97 mmol/L (98-107) L 12/21/18 05:59 Carbon Dioxide 28 mmol/L (21-32) 12/21/18 05:59 Anion Gap 8.0 (3-11) 12/21/18 05:59 BUN 19 mg/dl (7-18) H 12/21/18 05:59 Creatinine 0.93 mg/dl (0.6-1.2) 12/21/18 05:59 Est Cr Clr Drug Dosing 69.6 ml/min 12/21/18 05:59 Est GFR ( Amer) 77.4 12/21/18 05:59 Est GFR (Non-Af Amer) 66.8 12/21/18 05:59 BUN/Creatinine Ratio 20.0 (10-20) 12/21/18 05:59 Glucose 101 mg/dl (70-99) H 12/21/18 05:59 Osmolality 270 mOsm/kg (280-300) L 12/19/18 03:09 Lactate 1.4 mmol/L (0.4-2.0) 12/19/18 03:09 Calcium 7.8 mg/dl (8.5-10.1) L 12/21/18 05:59 Magnesium 1.8 mg/dl (1.8-2.4) 12/20/18 07:25 Iron 26 mcg/dl (35-150) L 12/20/18 07:25 Ferritin 22.6 ng/ml (8-388) 12/20/18 07:25 Total Bilirubin 2.0 mg/dl (0.2-1) H 12/19/18 07:52 Direct Bilirubin 0.5 mg/dl (0-0.2) H 12/18/18 19:36 AST 24 U/L (15-37) 12/19/18 07:52 ALT 35 U/L (12-78) 12/19/18 07:52 Alkaline Phosphatase 90 U/L (45-117) 12/19/18 07:52 Troponin I 0.064 ng/ml (0-0.045) H* 12/19/18 07:52 NT-Pro-B Natriuret Pep 82106 pg/ml (0-900) H 12/18/18 19:36 Total Protein 6.6 gm/dl (6.4-8.2) 12/19/18 07:52 Albumin 3.1 gm/dl (3.4-5.0) L 12/19/18 07:52 Globulin 3.5 gm/dl (2.5-4.0) 12/19/18 07:52 Albumin/Globulin Ratio 0.9 (0.9-2) 12/19/18 07:52 Lipase 81 U/L (73-393) 12/18/18 19:36 TSH 1.210 uIu/ml (0.300-4.500) 12/20/18 07:25 Urine Color Yellow 12/18/18 19:50 Urine Appearance Clear (Clear) 12/18/18 19:50 Urine pH 5.5 (4.5-7.5) 12/18/18 19:50 Ur Specific Daggett 1.020 (1.000-1.030) 12/18/18 19:50 Urine Protein 3+ (Negative) H 12/18/18 19:50 Urine Glucose (UA) Negative (Negative) 12/18/18 19:50 Urine Ketones Negative (Negative) 12/18/18 19:50 Urine Blood Negative (Negative) 12/18/18 19:50 Urine Nitrite Negative (Negative) 12/18/18 19:50 Urine Bilirubin Negative (Negative) 12/18/18 19:50 Urine Urobilinogen Negative (Negative) 12/18/18 19:50 Ur Leukocyte Esterase 1+ (Negative) H 12/18/18 19:50 Urine WBC (Auto) 10-30 /hpf (0-5) H 12/18/18 19:50 Urine RBC (Auto) 0-4 /hpf (0-4) 12/18/18 19:50 U Hyaline Cast (Auto) >30 /lpf (0-5) H 12/18/18 19:50 U Epithel Cells (Auto) >30 /lpf (0-5) H 12/18/18 19:50 Urine Bacteria (Auto) Negative (Negative) 12/18/18 19:50 Ur Renal Epithelial Cell 0-5 /lpf (0-5) 12/18/18 19:50 Granular Casts 1-5 /lpf (0) H 12/18/18 19:50 Waxy Casts 1-5 /lpf (0) H 12/18/18 19:50 WBC Casts 1-5 /lpf (0) H 12/18/18 19:50 Urine Opiates Screen Neg (Neg) 12/18/18 19:50 Ur Methadone, Qual Neg (Neg) 12/18/18 19:50 Urine Barbiturates Neg (Neg) 12/18/18 19:50 Ur Phencyclidine (PCP) Neg (Neg) 12/18/18 19:50 U Amphetamin/Meth Scrn Neg (Neg) 12/18/18 19:50 MDMA (Ecstasy) Screen Neg (Neg) 12/18/18 19:50 U Benzodiazepines Scrn Neg (Neg) 12/18/18 19:50 Ur Cocaine Metabolite Neg (Neg) 12/18/18 19:50 U Marijuana (THC) Screen Neg (Neg) 12/18/18 19:50 Hepatitis C Antibody Neg (Neg) 12/20/18 07:25 Influenza Type A (PCR) Neg for Influ A (Neg) 12/18/18 20:03 Influenza Type B (PCR) Neg for Influ B (Neg) 12/18/18 20:03 Resident Activity Tracking Resident Involvement: Resident Care Provided Care Provided: Adult Hospital Medicine
[2018-12-21] MEDS ORDERED: POTASSIUM CHLORIDE 10 MEQ TABCR PO STA (19:43)
[2018-12-22] MEDS ORDERED: POTASSIUM CHLORIDE 20 MEQ TABCR PO ONE (07:45)
[2018-12-22 08:39] LABS: BUN Creatinine Ratio 19.9 (10-20); Calcium 8.2 mg/dl (8.5-10.1); Creatinine Clr Calc Pharmacy 65.3 ml/min; Est GFR (African American) 72.7; Est GFR (Non-African American) 62.7; Potassium 3.7 mmol/L (3.5-5.1)
[2018-12-22] MEDS: FUROSEMIDE 40 MG in SYRINGE 0 ML IV SCH (08:39)
[2018-12-22] MEDS: BENZONATATE 100 MG CAPSULE PO SCH ×2 (08:39→14:25)
[2018-12-22] MEDS: CARVEDILOL 12.5 MG TAB PO SCH (08:39)
[2018-12-22] MEDS: ENOXAPARIN INJ 30 MG/0.3 ML SYR SQ SCH (08:40)
[2018-12-22] MEDS: SACUBITRIL-VALSARTAN 24-26 MG TAB PO SCH (08:40)
[2018-12-22] MEDS ORDERED: POTASSIUM CHLORIDE 10 MEQ TABCR PO ONE (09:15)
--- NOTE | 2018-12-22 10:02 | Cardiology Progress Note ---
Date of Service December 22, 2018 Assessment & Plan (1) Acute congestive heart failure: She presents with acute congestive heart failure. The cause is most likely cause development of a cardiomyopathy which is probably recent in origin. Agree with continued diuresis. I would switch to oral furosemide at this time. (2) Cardiomyopathy: Clinically she appears to have developed a cardiomyopathy recently, this is based on her symptoms, chest x-ray and her presentation. Her left ventricular function is markedly reduced but we do not have a prior comparison. The cardiomyopathy is probably nonischemic, possibly viral in etiology. Although she has low-grade cardiac enzymes I do not suspect this is primarily due to coronary artery disease. We will need some type of ischemic workup, probably a stress test, but I would not do that as yet, probably as an outpatient when her volume status has normalized. We will need to continue beta-blockade, I am going to use carvedilol but would not change the dose. She also should be on an GIORGIO inhibitor, I did start Entresto which so far she is tolerating well. (3) Tachycardia: She has sinus tachycardia on arrival, the heart rate has improved markedly. This was probably due to the cardiomyopathy. This should be treated with beta-blockade. It does not appear to be an abnormal rhythm, it was probably due to catecholamine excess. (4) Edema: She still has significant bilateral edema although it is improved. Although she attributes it to eating a salty sandwich that is probably not the case although perhaps that contributed, she should avoid salty foods. She will need continued diuresis although it is improving but it will take some time. (5) NSVT (nonsustained ventricular tachycardia): She had a run of nonsustained ventricular tachycardia on telemetry. This is a little bit worrisome given the degree of her left ventricular dysfunction. We should use a LifeVest at the time of discharge, she can wear this for up to 3 months during which time we can determine whether she needs an implantable ICD. (6) Paroxysmal SVT (supraventricular tachycardia): She had a run of paroxysmal supraventricular tachycardia, it was asymptomatic, the rate was around 120-130 bpm. I cannot tell the mechanism but it could be reentrant. I would not be overly concerned since she is asymptomatic, the rate of this tachycardia is slow enough that it will not triggered her LifeVest. Subjective She is feeling much better, she notes that she is still putting out a lot of fluid in her legs are improving. She is no longer short of breath. Physical Exam Vital Signs (Past 24 Hours): Last Vital Signs Temp 36.8 C 12/22/18 07:39 Pulse 86 12/22/18 08:00 Resp 18 12/22/18 07:39 BP 117/83 12/22/18 07:39 Pulse Ox 97 12/22/18 07:39 Physical Exam: Constitutional: Alert, cooperative and in no distress. Pulmonary: Clear to auscultation bilaterally. Cardiac: Regular rhythm with no murmur, gallop or rub. Abdomen: Soft, nontender with normal bowel sounds. Extremities: +2 bilateral pretibial edema. Skin: No rash, ecchymoses or petechiae. Results & Data Diagnostic Findings Telemetry: Sinus rhythm, 1 run of some type of supraventricular arrhythmia, could be a reentrant, it is in the range of about 120 bpm.
--- NOTE | 2018-12-22 11:06 | Discharge Summary ---
Date of Service December 22, 2018 Admission HPI Per Admitting Provider 58-year-old female presents with concerns for ongoing cough for about six weeks as well as nausea, occasional vomiting, occasional diarrhea, acutely bilateral swollen legs, and some new shortness of breath earlier on day prior to admission. - Patient notes no particular initial inciting source, stating about six weeks ago she developed self-described cold/flu symptoms. Primarily noted congested cough that has continued until the present. She says sometimes she will cough for three minutes straight which will result in some vomiting. This began around the end of November. She says she does not have emesis daily but did have some today, mostly of mucus. - Patient notes beginning this past she developed the new onset of bilateral ankle swelling. She says she has had mild leg swelling in the past if she eats too many salty chips. However, this amount of swelling seems the most severe. - She is noted some loose stools that began around the end of November as well. The most severe of which seemed to last for a couple of days. She thinks she was able to resolve this with more of a BRAT diet and has had some formed stools since. However, she says they have been loose in the past 24 hours. - Today, she noticed that she had some mild shortness of breath which was new when she was walking from her car. Normally she says she has no SOB, including with normal activity or walking on the stairs. She denies any chest pain throughout today or the past six weeks. On day prior to admit she initially presented to an urgent care who noted that she had an elevated blood pressure and referred her here. - At time of this H&P, the patient had received some Ativan for self-described anxiety related to any doctor's visit. She noted she felt much more calm. At present, she denies any chest pain, shortness of breath, ongoing nausea, abdominal pain, but says that her legs still feel just about as swollen as they have been over the past week. She denies any other acute concerns. Patient denies any known ongoing medical history. She denies any previous surgical procedures or chronic medications. She denies taking any medications regularly. She denies smoking and says she drinks alcohol very rarely. At baseline, she lives at home with her . Admission Exam Per Admitting Provider GENERAL: Awake, alert, well-appearing, speaking easily in full sentences, in no acute distress HENT: Normocephalic, atraumatic. Oropharynx unremarkable. EYES: Normal conjunctiva. Sclera non-icteric. NECK: Inspection normal. Non-tender. Supple and full ROM. No nuchal rigidity. CARDIAC: +S1S2 RRR, no murmurs. RESPIRATORY: Mild rhonchi at bilateral bases. Otherwise clear. Normal respiratory effort. GI: +BS, soft, non-distended. No tenderness to palpation. No rebound or guarding. No appreciable masses. EXTREMITIES: Moving all extremities naturally and easily. 1+ bilateral lower extremity edema from shins distally. NEURO: No gross neuro deficits. Principal Diagnosis Acute congestive heart failure secondary to cardiomyopathy Discharge Exam Constitutional WD/WN, vitals as above Eyes PERRL, conjunctivae normal, anicteric sclerae ENMT external ear and nose normal, oropharynx normal Neck trachea midline, no thyromegaly Respiratory normal respiratory effort, lungs clear to auscultation Cardiovascular RRR, no murmur, no edema Gastrointestinal (Abdomen) normal bowel sounds, soft, nontender, no hepatosplenomegaly Musculoskeletal no cyanosis or clubbing, extremities motor strength 5/5 Skin no rashes, warm and dry Discharge Data Allergies Allergy/AdvReac Type Severity Reaction Status Date / Time Penicillins Allergy HIVES,NAUSE Verified 12/18/18 20:02 A Sulfa (Sulfonamide Allergy Hives, Verified 12/18/18 20:02 Antibiotics) SWEKLLING ,NAUSEA Tetanus Vaccines and Toxoid AdvReac Nausea Verified 12/18/18 20:02 Consultations 12/18/18 22:21 ED Decision to Admit Stat 12/19/18 02:40 Consult Cardiology Routine Ordered Studies 12/18/18 20:43 CT angio chest PE protocol [place], [place] [phone] CT Scan Report Patient: INDU GREWALdmit Date: 12/18/18 MR#: [id number]: [address] Acct ID:[id number]: [facility] 1960[facility] [place] [address] Age: 58Location: ED Sex: F Room/Bed: Att Phy: Diagnosis: high blood pressure, shortness of breath Carly Phy: PCP,NO Service Date: 12/18/18 Fam Phy: PCP,NO Interpreting Phy: Lito Servin MD Admit Phy: Ordering Phy: Jeffery Salcedo M.D. cc: ~ CT angio chest PE protocol CT DOSE: 356.01 mGy.cm HISTORY: Chest pain ro PE TECHNIQUE: Multiaxial CT images of the chest were performed following the intravenous administration of contrast to evaluate the pulmonary arteries. Maximal intensity projection images were also obtained. A dose lowering technique was utilized adhering to the principles of ALARA. COMPARISON STUDY: None. FINDINGS: Vascular is unremarkable. Pulmonary vasculature enhances appropriately. There are no filling defects. Findings of congestive heart failure and bilateral pleural effusions. Heart is moderately enlarged. IMPRESSION: 1. Congestive heart failure. 2. Bilateral pleural effusions. 3. Study is negative for pulmonary embolus. The above report was generated using voice recognition software. It may contain grammatical, syntax or spelling errors. Electronically signed by: Lito Servin M.D. 12/18/2018 9:10 PM Dictated: 12/18/182108 Transcribed: 12/18/182108 [place], [place] [phone] XRay Report Patient: INDU GREWALdmit Date: 12/18/18 MR#: [id number]: [address] Acct ID:[id number]: Date: 1960[facility] Zip: [place] [address] Age: 58Location: ED Sex: F Room/Bed: Att Phy: Diagnosis: high blood pressure, shortness of breath Carly Phy: PCP,NO Service Date: 12/18/18 Fam Phy: PCP,NO Interpreting Phy: Lito Servin MD Admit Phy: Ordering Phy: Jeffery Salcedo M.D. cc: ~ XR abdomen 2V w PA chest CLINICAL HISTORY: vomitting diarrhea tachycardia COMPARISON STUDY: None FINDINGS: Bilateral pleural effusion. Components of congestive heart failure. Nonobstructive bowel pattern. No abnormal calcifications. IMPRESSION: 1. Congestive heart failure. 2. Negative abdomen. Interpretation summary of echocardiogram Left ventricular systolic function is severely reduced There is severe global hypokinesis of left ventricle Ejection fraction is 20-25% There is mild mitral regurgitation There is mild tricuspid regurgitation Large left pleural effusion Hospital Course (1) CHF (congestive heart failure): (1) Acute congestive heart failure: 58-year-old female with no significant past medical history presents with new CHF with cardiomyopathy, likely secondary to infectious causes. Acute systolic congestive heart failure, cardiomyopathy in the setting of recent viral symptoms As discussed in the HPI, the patient presented with viral symptoms and subsequent shortness of breath and lower extremity swelling. She was found to be in heart failure with pulmonary edema and bilateral pleural effusions. She was effectively diuresed with IV Lasix. Initial BNP was found to be over 19,000 and troponin was found to be 0.062. Echocardiogram showed a ejection fraction of 20-25% with severe hypokinesis of the left ventricle. Patient was evaluated by cardiology who felt that the cause of her cardiomyopathy is likely secondary to viral etiology. They did not pursue an ischemic workup at this time. Patient is being discharged with carvedilol 12.5 mg twice daily, Lasix 40 mg p.o. daily, Entresto p.o. twice daily Patient will be following up with cardiologyF clinic, plan is to pursue a ischemic workup with a stress test in the outpatient setting [facility] have a [facility]CP Non-sustained V. tach Detected while on telemetry. It was determined at the time of discharge the patient would benefit from wearing a LifeVest for 3 months following discharge as she is vulnerable to fatal arrhythmias. Hypokalemia Important to keep patient's potassium greater than 4.0 Recheck in the outpatient setting Patient discharged with 20 mEq p.o. daily Cough/diarrhea Symptoms of viral illness for 6 weeks, CMV, coxsackie's pending. Flu and hep C negative (2) Cardiomyopathy: Total Time Total Time Spent Total Time Spent (In Minutes): Greater than 30 minutes Total Time Includes: Examination of the Patient, Discharge Planning, Medication Reconciliation and Communication With Other Providers Discharge Plan Discharge Items Patient Disposition: Home - Self-Care Reason For Visit: tachycardia, chf Discharge Diagnosis: Cardiomyopathy, acute congestive heart failure Discharge Goals: Improve function and Therapeutic intervention Activity: Per 'Additional Instructions' section Non-emergency contact: Primary Care Provider Call non-emergency contact if: you have any medication questions Follow-up/Referrals: Karen Pan CRNP [Primary Care Provider] - 12/24/18 8:30 am (Please, follow up at SHAWN Pan's office with her associate, Dr. Mary Segovia, on December 24 at 8:30 am. *If you need to change this appointment, call their office at [phone].) Leydi Blanc PA-C [Physician] - 12/29/18 10:30 am (PLEASE BRING DAILY WEIGHTS AND UPDATED MEDICATIONS WITH YOU TO APPT.) Diet: Heart Healthy Addtl Provider Instructions: Ms. Grewal, You came to [facility] more found to have a cardiomyopathy which was causing heart failure. This effects the ability of the heart to pump blood throughout the body effectively. You were evaluated by supervisor metalizing who you will be following up with in the outpatient clinic. The cause of your cardiomyopathy is likely secondary to a viral illness. Nonetheless, the supervisor metalizing wants to be sure that the cause was not secondary to a blockage in your coronary arteries, the vessels around the heart. Once you have recovered, the supervisor metalizing will likely do a test called a exercise stress test. The test will evaluate how your heart functions with exercise. In addition, with the follow-up, your cardiac function will be continued to be monitored. You were given medications that help the heart cope and not have to work as hard during the recovery process. These medications include the following; carvedilol, Entresto and Lasix. You will continue to take these medications when you are discharged home. During the recovery period, you are at risk for dangerous heart rhythms. We are sending you home with a device called a LifeVest which ca n detect abnormal heart rhythms and provide defibrillation if needed. This device will picker operator any abnormal life-threatening heart rates/rhythms and provide a therapeutic shock in the situation where your cardiac function is compromised. You will need to wear this for the next 3 months. In addition, we are setting up an appointment with a primary care doctor. We recommend slowly increasing your physical activity. Did not push yourself. We recommend following up with your primary care physician if you have any concerning symptoms such as chest pain, shortness of breath, leg swelling, unex pectedly passing out. Prescriptions: New carvedilol 12.5 mg tablet 12.5 mg PO BID 30 Days Qty: 60 RF: 6 Entresto 24-26 mg tablet 1 tab PO BID 30 Days Qty: 60 RF: 6 furosemide [Lasix] 40 mg tablet 40 mg PO DAILY 30 Days Qty: 30 RF: 6 potassium chloride 20 mEq tablet extended release 20 meq PO DAILY 30 Days Qty: 30 RF: 6 Discontinued ibuprofen 200 mg Tablet 200 mg PO QID PRN (Reason: Pain) RF: 0 Stand-Alone Forms: Replaced By [facility] Discharge Orders: Discharge Order (Routine); Ordered 12/22/18 Ordered By: Mayank Mora Admission Data Admit Date/Time: 12/19/18 01:22 Attending Provider: Carol Becerra Admit Provider: Derick Glez Primary Care Provider: Karen Pan Other Providers: Chris Montalvo ; Tylor Kaufman Service: Telemetry Other Interventions: Discharge Summary Assessment (RN) Last Done: 12/22/18 14:46 DC Date/Time DO NOT enter until pt leaves facility: 12/22/18 17:06 Supervising Physician Co-Signing Physician Notes Resident Physician Supervision Note: I independently interviewed and examined the patient and verified the royal history and physical, reviewed labs and image studies, discussed the case with the resident Dr. Mora and agree with the findings and care plan. Time spent in discharge 35 min Resident Activity Tracking Resident Involvement: Resident Care Provided Care Provided: Adult Hospital Medicine
--- NOTE | 2018-12-22 14:15 | Heart Failure Progress Note ---
Date of Service December 22, 2018 Assessment & Plan (1) Acute congestive heart failure: Patient was evaluated today for discharge planning [place] [facility] [place]. She has a new onset of congestive heart failure and cardiomyopathy. She has been referred by Dr. Montalvo. 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 She will be discharged on the following new medications: - Lasix 40 mg daily - Carvedilol 12.5 mg po BID - Entresto 24/26 mg po BID We discussed the nature of heart failure and the program in detail. We discussed low sodium diet, which she already does. We discussed daily weights and fluid restriction. She was instructed to bring her weights to each follow up appointment. The transitional pathway has been activated. We would like to see her within 7 days of discharge. Appointment has been scheduled for 12/29/28 at 10:30am. She will have labs ordered prior to her follow up visit. Once her volume status is stable, Dr. Montalvo recommends an outpatient stress test. Continue to titrate medications as her BP allows. (2) Cardiomyopathy: Physical Exam Vital Signs (Past 24 Hours): Last Vital Signs Temp 36.8 C 12/22/18 11:06 Pulse 74 12/22/18 11:06 Resp 18 12/22/18 11:06 BP 105/72 12/22/18 11:06 Pulse Ox 98 12/22/18 11:06
[2018-12-22 21:27] LABS: Albumin 2.8 G/DL (3.8-4.8); Alpha 1 Globulin 0.3 G/DL (0.2-0.3); Alpha 2 Globulin 0.6 G/DL (0.5-0.9); Angiotensin Converting Enzyme 36 U/L (9-67); Beta-1-Globulin 0.4 G/DL (0.4-0.6); Beta-2-Globulin 0.4 G/DL (0.2-0.5); Gamma Globulin 0.9 G/DL (0.8-1.7); Monoclonal Protein Band 1 DNR G/DL (NOT DETECTED); Monoclonal Protein Band 2 DNR G/DL (NOT DETECTED); Monoclonal Protein Band 3 DNR G/DL (NOT DETECTED); Total Protein 5.4 G/DL (6.2-8.3)
[2018-12-23 06:24] LABS: Creatinine Ur 16 MG/DL (20-275); Protein, Urine Random 5 MG/DL (5-24); Urine Protein/Creatinine Ratio 313 (21-161)
[2018-12-24 18:37] LABS: CMV IgG Antibody <0.60 U/ML; CMV IgM Antibody <30.00 Au/mL; Coxsackie A10 <1:8; Coxsackie A16 <1:8; Coxsackie A2 <1:8; Coxsackie A4 <1:8; Coxsackie A7 <1:8; Coxsackie A9 <1:8
== END 2018-12-22 17:06 | disposition home or self-care (01) | DRG 280 ==
LOC: ED 19:00 → SUATTDRO 12-19 01:22 → 2S 12-19 01:22
DX: Z88.2 Allergy status to sulfonamides; I11.0 Hypertensive heart disease with heart failure; Z88.7 Allergy status to serum and vaccine; F41.9 Anxiety disorder, unspecified; E87.1 Hypo-osmolality and hyponatremia; E87.6 Hypokalemia; I47.2 Ventricular tachycardia; R17 Unspecified jaundice; I50.21 Acute systolic (congestive) heart failure; Z88.0 Allergy status to penicillin; I42.9 Cardiomyopathy, unspecified; J90 Pleural effusion, not elsewhere classified; R60.9 Edema, unspecified; D69.6 Thrombocytopenia, unspecified; I21.4 Non-ST elevation (NSTEMI) myocardial infarction; R19.7 Diarrhea, unspecified; I45.81 Long QT syndrome

== ENCOUNTER 2019-01-08 23:02 | Inpatient (IN) ==
[2019-01-09 00:24] LABS: Basophils # (auto) 0.04 K/uL (0-0.2); Basophils % (auto) 0.6 %; Eosinophils # (auto) 0.16 K/uL (0-0.5); Eosinophils % (auto) 2.5 %; Hematocrit (blood only) 47.6 % (37-47); Hemoglobin 15.7 g/dL (12.0-16.0); Immature Granulocytes # (auto) 0.01 K/uL (0.00-0.02); Immature Granulocytes % (auto) 0.2 %; Lymphocytes # (auto) 2.27 K/uL (1.2-3.4); Lymphocytes % (auto) 36.1 %; Mean Corpuscular Volume 87.7 fL (80-100); Mean Platelet Volume 10.9 fL (7.4-10.4); Monocytes # (auto) 0.87 K/uL (0.11-0.59); Monocytes % (auto) 13.8 %; Neutrophils # (auto) 2.94 K/uL (1.4-6.5); Neutrophils % (auto) 46.8 %; Platelet Count 341 K/uL (130-400); RDW Coefficient of Variation 15.5 % (11.5-14.5); RDW Standard Deviation 49.7 fL (36.4-46.3); Red Blood Count 5.43 M/uL (4.2-5.4); White Blood Count 6.29 K/uL (4.8-10.8)
[2019-01-09 00:35] LABS: Partial Thromboplastin Time 27.1 Seconds (21.0-31.0); Prothrombin Time 10.3 Seconds (9.0-12.0)
[2019-01-09 00:41] LABS: Albumin Level 3.5 gm/dl (3.4-5.0); Bilirubin Direct 0.2 mg/dl (0-0.2); Calcium 8.7 mg/dl (8.5-10.1); Creatinine Clr Calc Pharmacy 54.4 ml/min; Est GFR (African American) 61.2; Est GFR (Non-African American) 52.8; Magnesium 2.3 mg/dl (1.8-2.4); Potassium 4.2 mmol/L (3.5-5.1)
[2019-01-09 00:56] LABS: Bilirubin,Total 0.7 mg/dl (0.2-1); Troponin I 0.035 ng/ml (0-0.045)
--- NOTE | 2019-01-09 01:41 | History & Physical Report ---
Date of Service January 09, 2019 Assessment & Plan (1) Cardiomyopathy: Ms. Grewal is a 58 year old female with a past medical history of CHF, with an ejection fraction of 20-25% who presented to the emergency department after her LifeVest at home went off. She was admitted to [facility] from 12/19/2018 to 12/22/2018 for acute congestive heart failure secondary to viral cardiomyopathy. During this admission, she was also noted to have hypertension, as well as a short run of NSVT, seen on telemetry monitoring. She was therefore discharged home with a LifeVest, and the plan was to continue this up to 3 months until the decision was made as to whether or not she needs a n implantable ICD. -admit to telemetry -cardiology consult -patient in sinus rhythm upon presentation to [facility] -amiodarone bolus & drip initiated -NPO in case intervention is required tomorrow AM Congestive Heart Failure -ECHO at prior admission showed global hypokinesis, w/a severely reduced ventricular systolic function, and an EF of 20-25% -patient following w/heart failure clinic. Cardiology planning to conduct ischemic workup w/stress test in the future. -weight down to 77.1kg (improved from 83.9 kg on d/c on 12/22) -patient appears euvolemic on exam, BNP decreased from prior hospitalization -continue Lasix 40mg daily and Entresto BID -continue 20 mEq of potassium chloride daily, potassium 4.2 on admission -per review of outpatient records, patient's carvedilol was increased from 12.5mg BID to 25mg BID - will continue this increased dosage -monitor I/Os and daily weights Hypertension -continue medications as above Elevated TSH -TSH elevated at 5.8 -fT4 added to AM labs Code status: FULL DVT Prophylaxis: SCDs Disposition: admit to telemetry (2) Hypertension: (3) CHF (congestive heart failure): (4) NSVT (nonsustained ventricular tachycardia): History of Present Illness Primary Care Provider: SHAWN Guajardo Ms. 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 The patient states that she was watching TV with her , and dozed off, as she normally does. Her states that the LifeVest alarm went off, and stated that it was going to shock the patient. The LifeVest delivered a shock, however the patient did not wake up, until her roused her. Ms. Grewal reports that her LifeVest has not gone off in the past. She denies any recent chest pain, palpitations, shortness of breath, back pain, and says she has felt well for the last few days, with the exception of rhinorrhea and a mild cough. She states that she has been following with the heart failure clinic, and that she has been pleased with her overall improvement. She states that she is back at work full-time, and has been doing well. She notes that she doubled up on her dose of Lasix for the past few days, as instructed by the heart failure clinic, due to leg swelling. She states that her leg swelling improved greatly. She notes that her weight is approximately 165 pounds, and that she lost a few pounds after doubling up on the Lasix. She has no other complaints, and states she feels well. She lives at home with her . She denies a history of smoking, and drinks minimal amounts of alcohol. Allergies Allergy/AdvReac Type Severity Reaction Status Date / Time Penicillins Allergy HIVES,NAUSE Verified 01/09/19 00:00 A Sulfa (Sulfonamide Allergy Hives, Verified 01/09/19 00:00 Antibiotics) SWEKLLING ,NAUSEA Tetanus Vaccines and Toxoid AdvReac Nausea Verified 01/09/19 00:00 Home Medications Home Medications Medication Instructions Recorded Confirmed Type carvedilol 12.5 mg PO BID 30 Days #60 tab 12/22/18 01/09/19 Rx potassium chloride 20 meq PO DAILY 30 Days #30 tab 12/22/18 01/09/19 Rx sacubitril-valsartan [Entresto] 1 tab PO BID 30 Days #60 tab 12/22/18 01/09/19 Rx furosemide [Lasix] 40 mg PO DAILY PRN 01/09/19 01/09/19 History Past Med/Surg History Medical History Hypertension Anxiety Bilateral pleural effusion Acute congestive heart failure Non-ST elevation [place] (NSTEMI) (Acute) CHF (congestive heart failure) (Acute) No pertinent past medical history Surgical History No pertinent past surgical history Social History Communication Ability: Effective Animal Skinner Required: No Beliefs That Will Affect Care: None Current Living Situation: Significant Other Other Information That Helps Us Care for You: No Feels Safe at Home: Yes Safety Concerns: Feels Safe At This Time Smoking Status: Never smoker Hx Alcohol Use: No Hx Substance Use: No Review of Systems Constitutional: no fever, no chills, no fatigue and no weakness Respiratory: + cough; no dyspnea and no wheezing Cardiovascular: + edema; no chest pain, no dyspnea, no orthopnea, no palpitations, no syncope and no calf pain Gastrointestinal: no abdominal pain, no nausea, no vomiting and no change in bowel habits Genitourinary (Female): no dysuria and no urinary frequency Musculoskeletal: no back pain Integumentary: no rash and no new lesions Physical Exam Vital Signs (Past 24 Hours): Last Vital Signs Temp 36.7 C 01/08/19 23:06 Pulse 100 H 01/09/19 00:45 Resp 17 01/09/19 00:45 BP 161/118 H 01/09/19 00:45 Pulse Ox 96 01/09/19 00:45 Constitutional: WD/WN, vitals as above cooperative and comfortable ENMT: external ear and nose normal, oropharynx normal Respiratory: normal respiratory effort, lungs clear to auscultation Cardiovascular: Rate/Rhythm: regular rate and regular rhythm Vessels: radial pulses present Extremities: normal capillary refill and + pedal edema (trace edema b/l); no calf tenderness Gastrointestinal (Abdomen): normal bowel sounds, soft, nontender, no hepatosplenomegaly Skin: no rashes, warm and dry Psychiatric: A+Ox3, euthymic affect Supervising Physician Co-Signing Physician Notes Pt seen/examined with resident MD Bree Fitch. Orders and plan of admission formulated with resident. 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 She has had NSVT and is under consideration for ICD placement. She is currently wearing a life-vest which fired this evening. She slept through this raising some concern that she may have lost consciousness prior. She was easily roused by her after the vest delivered a shock. This was the first time that it fired. OE AAO x 2 S1,2 R CATB NT, ND No CCE P: As her vest fired we will presume sustained VT. Unfortunately we were not able to interrogate the vest. We hve started her on amiodarone pending additional evaluation by cardiology. We have additionally continued her B bethany, Entresto and Lasix as prescribed. Resident Activity Tracking Resident Involvement: Resident Care Provided Care Provided: Adult Hospital Medicine (1) CHF (congestive heart failure) Heart failure chronicity: acute Heart failure type: unspecified Qualified Code(s): I50.9 - Heart failure, unspecified
[2019-01-09] MEDS ORDERED: FUROSEMIDE 40 MG TAB PO PRN (03:30)
[2019-01-09] MEDS ORDERED: AMIODARONE IV BOLUS / DRIP IV STA (03:30)
[2019-01-09] MEDS ORDERED: AMIODARONE / D5W 150 MG/100 ML BAG IV STA (03:30)
[2019-01-09] MEDS ORDERED: AMIODARONE / D5W 360 MG/200 ML BAG IV SCH (03:30)
[2019-01-09] MEDS ORDERED: ACETAMINOPHEN 325 MG TAB PO PRN (03:30)
[2019-01-09] MEDS ORDERED: AMIODARONE 360MG / 200ML D5W IV ONE (03:58)
[2019-01-09] MEDS ORDERED: AMIODARONE 150MG / 100ML D5W IV ONE (03:58)
[2019-01-09 05:31] LABS: BUN Creatinine Ratio 17.4 (10-20); Calcium 8.6 mg/dl (8.5-10.1); Est GFR (African American) 72.7; Est GFR (Non-African American) 62.7; Potassium 4.6 mmol/L (3.5-5.1)
[2019-01-09 05:35] LABS: T4 Free Thyroxine 1.29 ng/dl (0.8-1.6)
--- NOTE | 2019-01-09 07:32 | Emergency Department Note ---
Entered by Raven Carlson acting as a scribe for Abdirizak Watson MD ED Provider Note Name: Akanksha Grewal Age: 58 F Arrives Via: Private vehicle Informant: The patient CC: Cardiac assessment HPI: A 58 year old female arrives for evaluation of an episode of a cardiac assessment. The patient reports that she was admitted to the hospital 3 weeks ago for acute CHF. She states that she was given a cardiac shock vest to [place] [facility] [employer] activity. 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 He states that the shock vest administered a shock to the patient and that the patient was consciousness. He notes that before the shock was administered the patient made an abnormal gurgling sound. The patient reports that she does not take Aspirin and was told not to take Aspirin. She denies lower extremity edema, headache, chest pain, back pain and shortness of breath. ROS: See above HPI for pertinent positives & negatives. A total of 10 systems reviewed and were otherwise negative. Past Medical History: HTN, Anxiety, Bilateral PE, CHF, NSTEMI. Past Surgical History: N/A Family History: N/A Social History: Feels safe at home. Never a smoker. Home Medications: Carvedilol 12.5 mg PO, Lasix 40 mg PO, Potassium Chloride 20 meq PO, Entresto 1 tab PO. Allergies Penicillins, Sulfa, Tetanus Vaccines and Toxoid Physical: Vitals: BP: 161/118, Pulse: 100, Resp: 17, Temp: 98.1F, O2 Sat: 86, Delivery: Room Air Exam: GENERAL: Patient is well appearing and in no acute distress. EYES: No scleral icterus, unremarkable pupils. ENT: Mucous membranes moist, no nasal congestion. NECK: No masses appreciated, no meningismus, trachea is midline. RESPIRATORY: No dyspnea. Clear to auscultation and equal bilaterally. No wheeze, no rhonchi. CARDIOVASCULAR: Regular rate and rhythm. No murmurs, rubs, gallops appreciated. GASTROINTESTINAL: Abdomen soft, non-tender, no peritonitis. Bowel sounds positive. No masses appreciated. BACK: No midline tenderness, no CVA tenderness EXTREMITIES: Normal motion all extremities, no cyanosis, no edema. NEUROLOGIC: Alert and oriented, no acute motor or sensory deficits, no focal weakness, cranial nerves grossly intact. SKIN: No rash, no jaundice, no diaphoresis. ED Course: 0008: Prior Medical Record, Triage/Nursing Notes, Medications, Allergies r eviewed by Me. Per chart, episode of of non-sustained v tach in the hospital. The patient is supposed to use the Life Vest for 3 months. The patient was evaluated in room A1, and a complete history and physical examination were performed. 0045: I reevaluated the patient at this time. She still has PACs. Heart rate is in the 90s to 100s. 0122: I reviewed the patient's case with Dr. Emy Rodríguez [facility]. He will evaluate the patient for further management. Vital Signs: reviewed and remarkable for wnl Labs: Reviewed and remarkable for wnl Interventions: Saline Lock Imaging: X ray results are stated below per my interpretation: Chest: 1 view: Moderate cardiomegaly without significant congestive findings without overt infiltrates appreaciated. Vastly improved from 12/2017. EKG: Per My interpretation: NSR 96 bpm without ecopy. Lateral t wave inversions with st depressions. This are mildly more pronounced from EKG Dec 2018 after her previous non sustained vtach. Consults: Dr Emy ARGUETA Hospitalist Blood pressure: Normal. No Referral necessary Disposition: Hospitalization Differentials: Etiologies such as shingles, musculoskeletal pain, pericarditis, myocarditis, cardiac ischemia, pericardial tamponade, pneumonia, pneumothorax, pleural effusion, hemothorax, pleurisy, aortic pathology, pulmonary embolism, in tra-abdominal process, as well as others were considered. Medical Decision Makin yr old female arrives for evaluation following electro-cardioversion while sleeping form her LifeVest. Significant other witnessed this occur. She is stable without any current symptoms. She was adamant she is not to receive aspirin. HR mildly tachy though eventually trending down. She is without any symptoms over 2 hours. Potassium and Mag OK currently. She has what very much sounds like cardioversion and she is stable. She notes she just increased carvedilol the last 2 days and thus with improving HR already will hold off on starting further meds at this moment until cards can get involved. I suspect she did have another episode of Vtach given her history. This does not seem consistent with PE. She has no current congestive failure. I do not feel that discharge would be safe and thus she was evaluated by hospitalist for further management. Impression: Ventricular tachycardia Abdirizak Watson MD The scribe's documentation has been prepared under my direction and personally reviewed by me in its entirety. I confirm that the note above accurately reflects all work, treatment, procedures, and medical decision making performed by me. Impression & Plan Ventricular tachycardia Past Med/Surg History Medical History Hypertension Anxiety Bilateral pleural effusion Acute congestive heart failure Non-ST elevation OK (NSTEMI) (Acute) CHF (congestive heart failure) (Acute) No pertinent past medical history Surgical History No pertinent past surgical history Social History Communication Ability: Effective Shutdown Planner Required: No Beliefs That Will Affect Care: None Current Living Situation: Significant Other Other Information That Helps Us Care for You: No Feels Safe at Home: Yes Safety Concerns: Feels Safe At This Time Smoking Status: Never smoker Hx Alcohol Use: No Hx Substance Use: No Results & Data Vital Signs Vital Signs - 24 hr 01/08/19 23:06 01/08/19 23:17 01/08/19 23:36 Temperature 36.7 C Temperature Source Oral Sepsis Action Taken by Nursing No Action Required Pulse Rate 94 H 96 H 98 H Pulse Rate [Apical] Pulse Rate from SpO2 Sensor 96 H 98 H Pulse Rhythm [Apical] Pulse Strength [Apical] Respiratory Rate 16 18 14 Respiratory Effort / Characteristics Respiratory Depth Respiratory Pattern Blood Pressure 151/109 H 156/105 H 155/113 H Blood Pressure [Right Arm] Blood Pressure Mean 123 122 127 Blood Pressure Mean [Right Arm] Blood Pressure Position [Right Arm] Pulse Oximetry 99 97 97 Oxygen Delivery Method Room Air 01/08/19 23:40 01/08/19 23:45 01/09/19 00:00 Temperature Temperature Source Sepsis Action Taken by Nursing Pulse Rate 97 H 93 H Pulse Rate [Apical] Pulse Rate from SpO2 Sensor 93 H 97 H Pulse Rhythm [Apical] Pulse Strength [Apical] Respiratory Rate 19 14 Respiratory Effort / Characteristics Respiratory Depth Respiratory Pattern Blood Pressure 154/110 H 140/108 H Blood Pressure [Right Arm] Blood Pressure Mean 124 118 Blood Pressure Mean [Right Arm] Blood Pressure Position [Right Arm] Pulse Oximetry 97 95 Oxygen Delivery Method Room Air 01/09/19 00:15 01/09/19 00:30 01/09/19 00:45 Temperature Temperature Source Sepsis Action Taken by Nursing Pulse Rate 100 H 100 H 100 H Pulse Rate [Apical] Pulse Rate from SpO2 Sensor 102 H 100 H 101 H Pulse Rhythm [Apical] Pulse Strength [Apical] Respiratory Rate 15 16 17 Respiratory Effort / Characteristics Respiratory Depth Respiratory Pattern Blood Pressure 152/112 H 144/96 H 161/118 H Blood Pressure [Right Arm] Blood Pressure Mean 125 112 132 Blood Pressure Mean [Right Arm] Blood Pressure Position [Right Arm] Pulse Oximetry 97 96 96 Oxygen Delivery Method 01/09/19 01:00 01/09/19 01:15 01/09/19 01:30 Temperature Temperature Source Sepsis Action Taken by Nursing Pulse Rate 95 H 92 H 91 H Pulse Rate [Apical] Pulse Rate from SpO2 Sensor 97 H 94 H 95 H Pulse Rhythm [Apical] Pulse Strength [Apical] Respiratory Rate 15 14 12 Respiratory Effort / Characteristics Respiratory Depth Respiratory Pattern Blood Pressure 152/102 H 152/99 H 148/99 H Blood Pressure [Right Arm] Blood Pressure Mean 118 116 115 Blood Pressure Mean [Right Arm] Blood Pressure Position [Right Arm] Pulse Oximetry 95 95 96 Oxygen Delivery Method 01/09/19 01:45 01/09/19 02:00 01/09/19 02:15 Temperature Temperature Source Sepsis Action Taken by Nursing Pulse Rate 96 H 88 89 Pulse Rate [Apical] Pulse Rate from SpO2 Sensor 97 H 88 89 Pulse Rhythm [Apical] Pulse Strength [Apical] Respiratory Rate 18 13 11 L Respiratory Effort / Characteristics Respiratory Depth Respiratory Pattern Blood Pressure 165/119 H 153/106 H 153/107 H Blood Pressure [Right Arm] Blood Pressure Mean 134 121 122 Blood Pressure Mean [Right Arm] Blood Pressure Position [Right Arm] Pulse Oximetry 96 94 95 Oxygen Delivery Method 01/09/19 02:30 01/09/19 03:31 Temperature 36.7 C Temperature Source Oral Sepsis Action Taken by Nursing Pulse Rate 86 Pulse Rate [Apical] 86 Pulse Rate from SpO2 Sensor 86 Pulse Rhythm [Apical] Regular Pulse Strength [Apical] Normal Respiratory Rate 14 12 Respiratory Effort / Characteristics Non-Labored Respiratory Depth Normal Respiratory Pattern Regular Blood Pressure 145/101 H Blood Pressure [Right Arm] 144/92 H Blood Pressure Mean 115 Blood Pressure Mean [Right Arm] 109 Blood Pressure Position [Right Arm] Lying Pulse Oximetry 95 94 Oxygen Delivery Method Room Air Home Medications Current Medication List: was personally reviewed by me Laboratory Data Attestation: I reviewed the patient's lab results. Result diagrams: 01/08/19 23:24 01/09/19 04:59 Lab Results 01/08/19 01/08/19 01/08/19 Range/Units 23:24 23:24 23:24 WBC 6.29 (4.8-10.8) K/uL RBC 5.43 H (4.2-5.4) M/uL Hgb 15.7 (12.0-16.0) g/dL Hct 47.6 H (37-47) % MCV 87.7 (80-100) fL MCH 28.9 (25-34) pg MCHC 33.0 (32-36) g/dL RDW Std Deviation 49.7 H (36.4-46.3) fL RDW Coeff of Clemencia 15.5 H (11.5-14.5) % Plt Count 341 (130-400) K/uL MPV 10.9 H (7.4-10.4) fL Immature Gran % (Auto) 0.2 % Neut % (Auto) 46.8 % Lymph % (Auto) 36.1 % [place] % (Auto) 13.8 % Eos % (Auto) 2.5 % Baso % (Auto) 0.6 % Immature Gran # (Auto) 0.01 (0.00-0.02) K/uL Neut # (Auto) 2.94 (1.4-6.5) K/uL Lymph # (Auto) 2.27 (1.2-3.4) K/uL [place] # (Auto) 0.87 H (0.11-0.59) K/uL Eos # (Auto) 0.16 (0-0.5) K/uL Baso # (Auto) 0.04 (0-0.2) K/uL PT 10.3 (9.0-12.0) Seconds INR 1.0 (0.9-1.1) APTT 27.1 (21.0-31.0) Seconds PTT Ratio 1.0 Sodium 138 (136-145) mmol/L Potassium 4.2 D (3.5-5.1) mmol/L Chloride 104 (98-107) mmol/L Carbon Dioxide 28 (21-32) mmol/L Anion Gap 6.0 (3-11) BUN 19 H (7-18) mg/dl Creatinine 1.13 (0.6-1.2) mg/dl Est Cr Clr Drug Dosing 54.4 ml/min Est GFR ( Amer) 61.2 Est GFR (Non-Af Amer) 52.8 BUN/Creatinine Ratio 17.0 (10-20) Glucose 99 (70-99) mg/dl Calcium 8.7 (8.5-10.1) mg/dl Magnesium 2.3 (1.8-2.4) mg/dl Total Bilirubin 0.7 (0.2-1) mg/dl Direct Bilirubin 0.2 (0-0.2) mg/dl AST 21 (15-37) U/L ALT 22 (12-78) U/L Alkaline Phosphatase 113 (45-117) U/L Troponin I 0.035 (0-0.045) ng/ml NT-Pro-B Natriuret Pep 3939 H (0-900) pg/ml Total Protein 8.0 (6.4-8.2) gm/dl Albumin 3.5 (3.4-5.0) gm/dl TSH 5.810 H (0.300-4.500) uIu/ml Free T4 (0.8-1.6) ng/dl 01/09/ Range/Units 04:59 WBC (4.8-10.8) K/uL RBC (4.2-5.4) M/uL Hgb (12.0-16.0) g/dL Hct (37-47) % MCV (80-100) fL MCH (25-34) pg MCHC (32-36) g/dL RDW Std Deviation (36.4-46.3) fL RDW Coeff of Clemencia (11.5-14.5) % Plt Count (130-400) K/uL MPV (7.4-10.4) fL Immature Gran % (Auto) % Neut % (Auto) % Lymph % (Auto) % [place] % (Auto) % Eos % (Auto) % Baso % (Auto) % Immature Gran # (Auto) (0.00-0.02) K/uL Neut # (Auto) (1.4-6.5) K/uL Lymph # (Auto) (1.2-3.4) K/uL [place] # (Auto) (0.11-0.59) K/uL Eos # (Auto) (0-0.5) K/uL Baso # (Auto) (0-0.2) K/uL PT (9.0-12.0) Seconds INR (0.9-1.1) APTT (21.0-31.0) Seconds PTT Ratio Sodium 139 (136-145) mmol/L Potassium 4.6 (3.5-5.1) mmol/L Chloride 109 H (98-107) mmol/L Carbon Dioxide 25 (21-32) mmol/L Anion Gap 5.0 (3-11) BUN 17 (7-18) mg/dl Creatinine 0.98 (0.6-1.2) mg/dl Est Cr Clr Drug Dosing 62.0 ml/min Est GFR ( Amer) 72.7 Est GFR (Non-Af Amer) 62.7 BUN/Creatinine Ratio 17.4 (10-20) Glucose 124 H (70-99) mg/dl Calcium 8.6 (8.5-10.1) mg/dl Magnesium (1.8-2.4) mg/dl Total Bilirubin (0.2-1) mg/dl Direct Bilirubin (0-0.2) mg/dl AST (15-37) U/L ALT (12-78) U/L Alkaline Phosphatase (45-117) U/L Troponin I (0-0.045) ng/ml NT-Pro-B Natriuret Pep (0-900) pg/ml Total Protein (6.4-8.2) gm/dl Albumin (3.4-5.0) gm/dl TSH (0.300-4.500) uIu/ml Free T4 1.29 (0.8-1.6) ng/dl Administered Medications Amiodarone HCl/Dextrose (Nexterone / D5w) 360 mg in 200 mls @ 33.333 mls/hr IV .Q6H MIKE Stop: 01/09/19 09:29 Last Admin: 01/09/19 04:29 Dose: 1 mg/min, 33.3 mls/hr Documented by: [id number] Cosigned by: [id number] Discontinued Medications Amiodarone HCl/Dextrose (Nexterone / D5w) Confirm Administered Dose 360 mg IV .STK-MED ONE Stop: 01/09/19 03:59 Last Admin: 01/09/19 04:38 Dose: Not Given Documented by: [id number] Amiodarone HCl/Dextrose (Nexterone / D5w) Confirm Administered Dose 150 mg IV .STK-MED ONE Stop: 01/09/19 03:59 Last Admin: 01/09/19 04:08 Dose: 150 mg Documented by: [id number] Cosigned by: [id number] Imaging Data Attestation: I personally reviewed and interpreted this imaging study as follows: ECG Data Attestation: I personally reviewed and interpreted this ECG as follows: Blood Pressure Blood Pressure Findings: Elevated blood pressure Blood Pressure Disposition: further management by hospitalist Discharge Plan Visit Data *Final* Discharge Date/Time: 01/09/19 03:29 Chief Complaint: Cardiac Assessment Stated Complaint: LIFE VEST GOING OFF ED Provider: Abdirizak Watson Discharge Problem: Ventricular tachycardia Patient Disposition: Admitted As Inpatient Discharge Instructions Interventions: ED Discharge Assessment Last Done: 01/09/19 03:29 The scribe's documentation has been prepared under my direction and personally reviewed by me in its entirety. I confirm that the note above accurately reflects all work, treatment, procedures, and medical decision making performed by me.
[2019-01-09] MEDS: FUROSEMIDE 40 MG TAB PO SCH (08:07)
[2019-01-09] MEDS: POTASSIUM CHLORIDE 20 MEQ TABCR PO SCH (08:07)
[2019-01-09] MEDS: CARVEDILOL 25 MG TAB PO SCH ×2 (08:07→20:40)
[2019-01-09] MEDS: SACUBITRIL-VALSARTAN 24-26 MG TAB PO SCH ×2 (08:07→20:40)
[2019-01-09] MEDS: AMIODARONE / D5W 360 MG/200 ML BAG IV SCH ×2 (08:11→21:54)
--- NOTE | 2019-01-09 10:13 | XRay Report ---
XR chest 1V portable CLINICAL HISTORY: Congestive failure COMPARISON STUDY: Chest radiograph and chest CT December 18, 2018. FINDINGS: Moderate cardiomegaly is noted. Pulmonary edema has significantly improved when compared to exam of December 18, 2018. No pneumothorax is noted. No definite pleural effusion is noted. No consolida tion. IMPRESSION: Significant interval improvement in pulmonary edema since exam of December 18, 2018. Electronically signed by: Parminder Abraham M.D. 01/09/2019 10:12 AM
--- NOTE | 2019-01-09 15:14 | Cardiology Progress Note ---
Date of Service January 09, 2019 Assessment & Plan (1) Syncope and collapse: The patient's event was witnessed by her . She was difficult are rounds immediately following her defibrillation. She was started on intravenous amiodarone and is currently undergoing her loading dose. Can switch over to amiodarone 200 mg twice daily once the infusion has finished. (2) Ventricular tachycardia: The patient was diagnosed with ventricular tachycardia during her most recent hospitalization. She was discharged home with a life vest in place. Dr. Montalvo will assume her care Friday. 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 She has not undergone an ischemic workup to this point. She is tolerating carvedilol, Lasix, and Entresto. (4) Hypertension: Adequate control on her current medical regimen. Subjective The patient is resting comfortably in bed without complaints. The events of her presentation reviewed in detail. She is tolerating interest amiodarone without difficulty. Physical Exam 2 Vital Signs (Past 24 Hours): Last Vital Signs Temp 36.7 C 01/09/19 11:41 Pulse 75 01/09/19 11:41 Resp 12 01/09/19 11:41 BP 131/94 01/09/19 11:41 Pulse Ox 95 01/09/19 11:41 Physical Exam: In general this is a well-developed well-nourished white female in no acute distress. HEENT exam is negative. Neck is supple with full carotid upstrokes. There are no carotid bruits. Jugular venous pressure is flat at 90. There is no thyromegaly. Cardiovascular exam reveals a regular rhythm with a normal S1 and S2. No S3, S4, or murmurs are noted. Lungs are clear without rales, rhonchi, or wheezes. Abdomen is soft and nontender without bruits. Extremities reveal intact radial artery and posterior tibial pulses bilaterally. There is no peripheral edema. Results & Data Laboratory Results Laboratory Results - last 24 hr 01/08/19 01/08/19 01/08/19 23:24 23:24 23:24 WBC 6.29 RBC 5.43 H Hgb 15.7 Hct 47.6 H MCV 87.7 MCH 28.9 MCHC 33.0 RDW Std Deviation 49.7 H RDW Coeff of Clemencia 15.5 H Plt Count 341 MPV 10.9 H Immature Gran % (Auto) 0.2 Neut % (Auto) 46.8 Lymph % (Auto) 36.1 [place] % (Auto) 13.8 Eos % (Auto) 2.5 Baso % (Auto) 0.6 Immature Gran # (Auto) 0.01 Neut # (Auto) 2.94 Lymph # (Auto) 2.27 [place] # (Auto) 0.87 H Eos # (Auto) 0.16 Baso # (Auto) 0.04 PT 10.3 INR 1.0 APTT 27.1 PTT Ratio 1.0 Sodium 138 Potassium 4.2 D Chloride 104 Carbon Dioxide 28 Anion Gap 6.0 BUN 19 H Creatinine 1.13 Est Cr Clr Drug Dosing 54.4 Est GFR ( Amer) 61.2 Est GFR (Non-Af Amer) 52.8 BUN/Creatinine Ratio 17.0 Glucose 99 Calcium 8.7 Magnesium 2.3 Total Bilirubin 0.7 Direct Bilirubin 0.2 AST 21 ALT 22 Alkaline Phosphatase 113 Troponin I 0.035 NT-Pro-B Natriuret Pep 3939 H Total Protein 8.0 Albumin 3.5 TSH 5.810 H Free T4 01/09/19 04:59 WBC RBC Hgb Hct MCV MCH MCHC RDW Std Deviation RDW Coeff of Clemencia Plt Count MPV Immature Gran % (Auto) Neut % (Auto) Lymph % (Auto) [place] % (Auto) Eos % (Auto) Baso % (Auto) Immature Gran # (Auto) Neut # (Auto) Lymph # (Auto) [place] # (Auto) Eos # (Auto) Baso # (Auto) PT INR APTT PTT Ratio Sodium 139 Potassium 4.6 Chloride 109 H Carbon Dioxide 25 Anion Gap 5.0 BUN 17 Creatinine 0.98 Est Cr Clr Drug Dosing 62.0 Est GFR ( Amer) 72.7 Est GFR (Non-Af Amer) 62.7 BUN/Creatinine Ratio 17.4 Glucose 124 H Calcium 8.6 Magnesium Total Bilirubin Direct Bilirubin AST ALT Alkaline Phosphatase Troponin I NT-Pro-B Natriuret Pep Total Protein Albumin TSH Free T4 1.29 Diagnostic Findings manager monitoring notes normal sinus rhythm without evidence of ventricular tachycardia
--- NOTE | 2019-01-09 15:45 | Hospitalist Progress Note ---
Date of Service January 09, 2019 Assessment & Plan (1) Cardiomyopathy: With ICD firing. Continue current med management, continue amiodarone, agree with cardiology. Await EP cardiology input in regards to ongoing management with medications and vest, versus implantable defibrillator. Await i nterrogation of vest for true rhythm whenever it went off. (2) Hypertension: Continue meds as per cardiomyopathy (3) CHF (congestive heart failure): Chronic systolic CHF, compensated at this time. Continue current med management (4) NSVT (nonsustained ventricular tachycardia): As above (5) DVT prophylaxis: SCD (6) Discharge planning issues: Telemetry for now, ongoing med management at this time. Subjective Feeling okay. 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 No other current symptoms. Review of systems otherwise negative except for as above. Review of Systems All systems reviewed & are unremarkable except as noted in HPI & below Physical Exam Vital Signs (Past 24 Hours): Last Vital Signs Temp 36.7 C 01/09/19 15:13 Pulse 72 01/09/19 15:13 Resp 14 01/09/19 15:13 BP 124/82 01/09/19 15:13 Pulse Ox 94 01/09/19 15:13 Physical Exam: General she is awake alert oriented x3 pleasant no distress. HEENT normocephalic atraumatic mucous membranes are moist. Breathing is unlabored no accessory muscle use. Cardio is regular rhythm/regular rate. Skin shows no rashes no pallor or icterus. Neuro shows cranial nerves II through XII be grossly intact gross motor and sensory are intact. (1) CHF (congestive heart failure) Heart failure chronicity: acute Heart failure type: unspecified Qualified Code(s): I50.9 - Heart failure, unspecified
[2019-01-10] MEDS: FUROSEMIDE 40 MG TAB PO SCH (08:17)
[2019-01-10] MEDS: CARVEDILOL 25 MG TAB PO SCH ×2 (08:17→20:14)
[2019-01-10] MEDS: SACUBITRIL-VALSARTAN 24-26 MG TAB PO SCH ×2 (08:17→20:14)
[2019-01-10] MEDS: POTASSIUM CHLORIDE 20 MEQ TABCR PO SCH (08:17)
--- NOTE | 2019-01-10 08:26 | Hospitalist Progress Note ---
Date of Service January 10, 2019 Assessment & Plan (1) Cardiomyopathy: With vest ICD firing. Continue current med management, continue amiodarone, agree with cardiology. Await EP cardiology input in regards to ongoing management with medications and vest, versus implantable defibrillator. Await interrogation of vest for true rhythm whenever it went off. (2) Hypertension: Continue meds as per cardiomyopathy (3) CHF (congestive heart failure): Chronic systolic CHF, compensated at this time. on coreg and entresto plus some lasix (4) NSVT (nonsustained ventricular tachycardia): As above (5) DVT prophylaxis: SCD (6) Discharge planning issues: Telemetry for now, ongoing med management at this time. Subjective this pt is without complaints has much anxiety and concerns regarding the need for a defibrillatior device and looking forward to speaking to Dr Montalvo Review of Systems ROS: well nourished well developed. No double vision blurry vision No problems with speech or swallowing No palpitations, chest pain or pressure No Wheezing or breathing issues No abdominal pain nausea vomiting diarrhea changes in appetite or weight No burning urine urine frequency or changes in color No focal joint pain or muscle pain No skin rashes or oral lesions No unusual bruising or bleeding No focused back pain or numbness or loss of strength No changes in memory or confusion Physical Exam Vital Signs (Past 24 Hours): Last Vital Signs Temp 36.4 C L 01/10/19 07:45 Pulse 74 01/10/19 07:45 Resp 20 01/10/19 07:45 BP 123/82 01/10/19 07:45 Pulse Ox 98 01/10/19 07:45 The patient appeared well nourished and normally developed. Vital signs as documented. Head exam is unremarkable. normocephalic, atraumatic Neck is without jugular venous distension, thyromegaly, or lymphademopathy Lungs are clear to auscultation and percussion. Cardiac exam reveals Rhythm is regular. First and second heart sounds normal. Abdominal exam reveals normal bowel sounds, no masses, no organomegaly Extremities are nonedematous and both pedal pulses are present Neurologic exam is A&Ox3, no focal deficits, strength is equal bilateral Psychologically seems neither anxious or depressed Skin is warm Dry without bruises or lesions (1) CHF (congestive heart failure) Heart failure chronicity: acute Heart failure type: unspecified Qualified Code(s): I50.9 - Heart failure, unspecified
[2019-01-10] MEDS: AMIODARONE / D5W 360 MG/200 ML BAG IV SCH ×2 (10:06→21:03)
--- NOTE | 2019-01-10 11:13 | Cardiology Progress Note ---
Date of Service January 10, 2019 Assessment & Plan (1) Syncope and collapse: The patient's event was witnessed by her . She was difficult to arouse immediately following her defibrillation. Can transition her to amiodarone 200 mg twice daily. (2) Ventricular tachycardia: The patient was diagnosed with ventricular tachycardia during her most recent hospitalization. Dr. Montalvo will assume her care tomorrow morning. (3) Cardiomyopathy: Original suspicion was a viral induced cardiomyopathy. She has not undergone an ischemic workup to this point. She is tolerating carvedilol, Lasix, and Entresto. (4) Hypertension: Adequate control on her current medical regimen. Subjective The patient is resting comfortably in the bedside chair without complaints of chest pain, dyspnea, syncope, or presyncope. Long discussion with the patient regarding an implantable defibrillator versus life vest. Physical Exam Vital Signs (Past 24 Hours): Last Vital Signs Temp 36.4 C L 01/10/19 07:45 Pulse 74 01/10/19 07:45 Resp 20 01/10/19 07:45 BP 123/82 01/10/19 07:45 Pulse Ox 98 01/10/19 07:45 Physical Exam: In general this is a well-developed well-nourished white female in no acute distress. HEENT exam is negative. Neck is supple with full carotid upstrokes. There are no carotid bruits. Jugular venous pressure is flat at 90. There is no thyromegaly. Cardiovascular exam reveals a regular rhythm with a normal S1 and S2. No S3, S4, or murmurs are noted. Lungs are clear without rales, rhonchi, or wheezes. Abdomen is soft and nontender without bruits. Extremities reveal intact radial artery and posterior tibial pulses bilaterally. There is no peripheral edema. Results & Data Diagnostic Findings gambling monitor notes sinus rhythm without evidence of ventricular dysrhythmias.
[2019-01-11] MEDS: POTASSIUM CHLORIDE 20 MEQ TABCR PO SCH (08:13)
[2019-01-11] MEDS: CARVEDILOL 25 MG TAB PO SCH ×2 (08:14→20:35)
[2019-01-11] MEDS: SACUBITRIL-VALSARTAN 24-26 MG TAB PO SCH ×2 (08:14→20:36)
[2019-01-11] MEDS: FUROSEMIDE 40 MG TAB PO SCH (08:15)
[2019-01-11] MEDS: AMIODARONE / D5W 360 MG/200 ML BAG IV SCH ×2 (08:57→20:50)
--- NOTE | 2019-01-11 11:35 | Hospitalist Progress Note ---
Date of Service January 11, 2019 Assessment & Plan (1) Cardiomyopathy: With vest ICD firing. Continue current med management, continue amiodarone, agree with cardiology. d/w Dr. Montalvo today, will d/c patient to home once fitted with new life vest plan for ICD later this week as outpatient (2) Hypertension: Continue meds as per cardiomyopathy (3) CHF (congestive heart failure): Chronic systolic CHF, compensated at this time. on coreg and entresto plus some lasix ECHO 01/11: still with EF of 25%, global hypokinesis (4) NSVT (nonsustained ventricular tachycardia): As above plan for ICD later this week as outpatient (5) DVT prophylaxis: SCD (6) Discharge planning issues: d/c to home tomorrow AM Subjective patient resting in bed, no issues over the weekend no further syncopal episodes since admission data from life vest gathered and sent, will be analyzed by EP possible ICD this week, will discuss further with patient reviewed chart, reviewed labs discussed with Dr. Montalvo Review of Systems All systems reviewed & are unremarkable except as noted in HPI & below Constitutional: + fatigue and + weakness Cardiovascular: no syncope Physical Exam Vital Signs (Past 24 Hours): Last Vital Signs Temp 36.8 C 01/11/19 11:12 Pulse 73 01/11/19 11:12 Resp 18 01/11/19 11:12 BP 115/80 01/11/19 11:12 Pulse Ox 95 01/11/19 11:12 Constitutional: WD/WN, vitals as above Eyes: PERRL, conjunctivae normal, anicteric sclerae ENMT: external ear and nose normal, oropharynx normal Neck: trachea midline, no thyromegaly Respiratory: normal respiratory effort, lungs clear to auscultation Cardiovascular: RRR, no murmur, no edema Gastrointestinal (Abdomen): normal bowel sounds, soft, nontender, no hepatosplenomegaly Musculoskeletal: no cyanosis or clubbing, extremities motor strength 5/5 Skin: no rashes, warm and dry Neurologic: patellar DTR's 2+ bilat, sensation intact and PERRL, EOMI, accommodation nl, no face palsy, no dysarthria Psychiatric: A+Ox3, euthymic affect Lymphatic: no cervical or axillary lymphadenopathy Results & Data Medications Administered Current Inpatient Medications Acetaminophen (Tylenol) 650 mg PO Q4H PRN PRN Reason: Pain or Fever Stop: 02/08/19 03:29 Carvedilol (Coreg) 25 mg PO BID [facility] Stop: 02/08/19 08:59 Last Admin: 01/11/19 08:14 Dose: 25 mg Documented by: Furosemide (Lasix) 40 mg PO DAILY [facility] Stop: 02/08/19 08:59 Last Admin: 01/11/19 08:15 Dose: 40 mg Documented by: Amiodarone HCl/Dextrose (Nexterone / D5w) 360 mg in 200 mls @ 16.667 mls/hr IV .Q12H [facility] Stop: 02/08/19 09:29 Last Admin: 01/11/19 08:57 Dose: 0.5 mg/min, 16.7 mls/hr Documented by: Potassium Chloride (Klor-Con M20) 20 meq PO DAILY [facility] Stop: 02/08/19 08:59 Last Admin: 01/11/19 08:13 Dose: Not Given Documented by: Sacubitril/Valsartan (Entresto 24/26mg) 1 tab PO BID [facility] Stop: 02/08/19 08:59 Last Admin: 01/11/19 08:14 Dose: 1 tab Documented by: (1) CHF (congestive heart failure) Heart failure chronicity: acute Heart failure type: unspecified Qualified Code(s): I50.9 - Heart failure, unspecified
[2019-01-12] MEDS: POTASSIUM CHLORIDE 20 MEQ TABCR PO SCH (07:58)
[2019-01-12] MEDS: SACUBITRIL-VALSARTAN 24-26 MG TAB PO SCH (07:58)
[2019-01-12] MEDS: CARVEDILOL 25 MG TAB PO SCH (07:58)
[2019-01-12] MEDS: FUROSEMIDE 40 MG TAB PO SCH (07:59)
[2019-01-12] MEDS ORDERED: SODIUM CHLORIDE 0.9% 1000ML 500 ML IV ONE (09:20)
[2019-01-12 10:12] LABS: Basophils # (auto) 0.03 K/uL (0-0.2); Basophils % (auto) 0.3 %; Eosinophils # (auto) 0.14 K/uL (0-0.5); Eosinophils % (auto) 1.5 %; Hematocrit (blood only) 44.8 % (37-47); Immature Granulocytes # (auto) 0.01 K/uL (0.00-0.02); Immature Granulocytes % (auto) 0.1 %; Lymphocytes # (auto) 1.43 K/uL (1.2-3.4); Lymphocytes % (auto) 14.8 %; Mean Corpuscular Hgb Conc 33.5 g/dL (32-36); Mean Corpuscular Volume 85.2 fL (80-100); Mean Platelet Volume 11.1 fL (7.4-10.4); Monocytes # (auto) 1.27 K/uL (0.11-0.59); Monocytes % (auto) 13.2 %; Neutrophils # (auto) 6.77 K/uL (1.4-6.5); Neutrophils % (auto) 70.1 %; Platelet Count 229 K/uL (130-400); RDW Coefficient of Variation 15.4 % (11.5-14.5); RDW Standard Deviation 48.6 fL (36.4-46.3); Red Blood Count 5.26 M/uL (4.2-5.4); White Blood Count 9.65 K/uL (4.8-10.8)
[2019-01-12 10:54] LABS: BUN Creatinine Ratio 16.4 (10-20); Calcium 8.6 mg/dl (8.5-10.1); Creatinine Clr Calc Pharmacy 60.6 ml/min; Est GFR (African American) 70.1; Est GFR (Non-African American) 60.5
--- NOTE | 2019-01-12 16:47 | Discharge Summary ---
Date of Service January 12, 2019 Admission HPI Per Admitting Provider Ms. 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 The patient states that she was watching TV with her , and dozed off, as she normally does. Her states that the LifeVest alarm went off, and stated that it was going to shock the patient. The LifeVest delivered a shock, however the patient did not wake up, until her roused her. Ms. Grewal reports that her LifeVest has not gone off in the past. She denies any recent chest pain, palpitations, shortness of breath, back pain, and says she has felt well for the last few days, with the exception of rhinorrhea and a mild cough. She states that she has been following with the heart failure clinic, and that she has been pleased with her overall improvement. She states that she is back at work full-time, and has been doing well. She notes that she doubled up on her dose of Lasix for the past few days, as instructed by the heart failure clinic, due to leg swelling. She states that her leg swelling improved greatly. She notes that her weight is approximately 165 pounds, and that she lost a few pounds after doubling up on the Lasix. She has no other complaints, and states she feels well. She lives at home with her . She denies a history of smoking, and drinks minimal amounts of alcohol. Admission Exam Per Admitting Provider Constitutional: WD/WN, vitals as above cooperative and comfortable ENMT: external ear and nose normal, oropharynx normal Respiratory: normal respiratory effort, lungs clear to auscultation Cardiovascular: Rate/Rhythm: regular rate and regular rhythm Vessels: radial pulses present Extremities: normal capillary refill and + pedal edema (trace edema b/l); no calf tenderness Gastrointestinal (Abdomen): normal bowel sounds, soft, nontender, no hepatosplenomegaly Skin: no rashes, warm and dry Psychiatric: A+Ox3, euthymic affect Principal Diagnosis Syncope Discharge Exam Constitutional WD/WN, vitals as above Eyes PERRL, conjunctivae normal, anicteric sclerae ENMT external ear and nose normal, oropharynx normal Neck trachea midline, no thyromegaly Respiratory normal respiratory effort, lungs clear to auscultation Cardiovascular RRR, no murmur, no edema Gastrointestinal (Abdomen) normal bowel sounds, soft, nontender, no hepatosplenomegaly Musculoskeletal no cyanosis or clubbing, extremities motor strength 5/5 Skin no rashes, warm and dry Neurologic patellar DTR's 2+ bilat, sensation intact and PERRL, EOMI, accommodation nl, no face palsy, no dysarthria Psychiatric A+Ox3, euthymic affect Lymphatic no cervical or axillary lymphadenopathy Discharge Data Allergies Allergy/AdvReac Type Severity Reaction Status Date / Time Penicillins Allergy HIVES,NAUSE Verified 01/09/19 00:00 A Sulfa (Sulfonamide Allergy Hives, Verified 01/09/19 00:00 Antibiotics) SWEKLLING ,NAUSEA Tetanus Vaccines and Toxoid AdvReac Nausea Verified 01/09/19 00:00 Consultations 01/09/19 01:22 ED Decision to Admit Stat 01/09/19 03:30 Consult Cardiology Routine Hospital Course (1) Syncope and collapse: life vest fired in outpatient setting no arrhythmia here in the hospital had a second episode of syncope on 01/12 in the morning she was feeling light headed prior to getting up but stood up anyway she lost consciousness briefly, hit her head slightly on the side table there was no arrhythmia on the monitor, was in sinus rhythm the whole time RN checked orthostatic vitals, they were normal, no symptoms of light headedness when standing discussed with patient, said that ever since she started Coreg she has been feeling fatigued, weak they told her to take 12.5mg three times a day but she was just taking it twice she felt much better after 500cc of NSS and some rest, no further symptoms through the afternoon instructed to take it easy at home, no driving, no working around the house plans to follow up on Friday for ICD with Dr. Montalvo continue Entresto, cut back to Coreg 12.5mg BID instructions provided to change positions slowly (2) Cardiomyopathy: unclear etiology of cardiomyopathy repeat echo still shows EF of 25% will continue treatment with Entresto and Coreg close follow up with heart failure clinic (3) Hypertension: BP running low normal continue Entresto decrease Coreg from 12.5mg TID to 12.5mg BID (4) CHF (congestive heart failure): compensated, chronic systolic failure on coreg and entresto plus PRN lasix ECHO 01/11: still with EF of 25%, global hypokinesis (5) NSVT (nonsustained ventricular tachycardia): As above plan for ICD later this week as outpatient on Friday (6) DVT prophylaxis: SCD Total Time Total Time Spent Total Time Spent (In Minutes): 50 minutes Total Time Includes: Examination of the Patient, Discharge Planning, Medication Reconciliation and Communication With Other Providers (Dr. Montalvo) Discharge Plan Discharge Items Patient Disposition: Home - Self-Care Reason For Visit: ARRHYTHMIA, CHF Discharge Diagnosis: Cardiomyopathy, Ventricular tachycardia Condition: Good Discharge Goals: Improve disease control and Therapeutic intervention Activity: Resume your previous activity Driving/Machine Use Comment: no driving until after ICD placed Non-emergency contact: Primary Care Provider and Assistant Secretary Call non-emergency contact if: you have any medication questions, your symptoms worsen and you have a fever Follow-up/Referrals: Karen Pan CRNP [Primary Care Provider] - 01/19/19 8:30 am (You have a follow up appointment scheduled with SHAWN Rodríguez, on FridayJanuary 19 at 8:30am. If you have any questions or need to reschedule, please call the office at [phone].) Diet: Heart Healthy Fluids: 1500ml (6 cups) Addtl Provider Instructions: Medications: - CARVEDILOL: decrease back from 12.5mg three times a day to twice a day, don't start until tomorrow morning Syncope, arrhythmia Dr. Montalvo recommends implantable cardiac defibrillator can be done Friday this week report tomorrow to be measured syncope today, likely a side effect of carvedilol dose was increased to 25mg during admission, likely too high of a dose at this time orthostatic vital signs were normal as above, recommend holding Coreg this evening and then starting at 12.5mg twice a day tomorrow morning Prescriptions: New carvedilol [Coreg] 12.5 mg tablet 12.5 mg PO BID Qty: 60 RF: 1 Continued Entresto 24-26 mg tablet 1 tab PO BID 30 Days Qty: 60 RF: 6 potassium chloride 20 mEq tablet extended release 20 meq PO DAILY 30 Days Qty: 30 RF: 6 furosemide [Lasix] 40 mg tablet 40 mg PO DAILY PRN (Reason: Edema) RF: 0 Discontinued carvedilol 12.5 mg tablet 12.5 mg PO BID 30 Days Qty: 60 RF: 6 Stand-Alone Forms: [facility] Discharge Orders: Discharge Order (Routine); Ordered 01/12/19 Ordered By: Javier Knight Admission Data Admit Date/Time: 01/09/19 15:43 Attending Provider: Javier Knight Admit Provider: Jackie Fitch Primary Care Provider: Karen Pan Other Providers: Yuan Quevedo ; Sylvester Nichole ; Gualberto Brito ; Demetrio Fulton ; Chris Montalvo ; Clemente Brian Jr ; Jarad Dwyer ; Susan Madrigal ; Radha Montanez ; Darren King ; Darren Ortiz ; Alvarado Penaloza ; Fercho Ohara ; Leydi Blanc ; Nicole Maloney ; Wally Peoples Service: Telemetry Other Interventions: Discharge Summary Assessment (RN) Last Done: 01/12/19 08:36 DC Date/Time DO NOT enter until pt leaves facility: 01/12/19 16:19
[2019-01-12] MEDS ORDERED: CARVEDILOL 6.25 MG TAB PO SCH (21:00)
== END 2019-01-12 16:19 | disposition home or self-care (01) | DRG 315 ==
LOC: ED 23:02 → 1E 23:02 → SUATTDRO 01-09 02:38 → 1E 01-09 03:29 → SUATTDRO 01-09 15:43 → 2S 01-10 19:11

== ENCOUNTER 2019-01-14 05:49 | Observation (INO) ==
[2019-01-14] MEDS ORDERED: LACTATED RINGER'S 1,000 ML IV SCH (06:00)
[2019-01-14] MEDS ORDERED: CLINDAMYCIN 600 MG/54 ML BAG IV SCH (06:00)
[2019-01-14] MEDS ORDERED: BACITRACIN OINT 0.9 GM PKT ONE (07:09)
[2019-01-14] MEDS ORDERED: LIDOCAINE HCL 1% 20 ML VIAL ONE (07:10)
[2019-01-14] MEDS ORDERED: BACITRACIN INJ 50,000 UNIT VIAL ONE ×2 (07:10→10:21)
--- NOTE | 2019-01-14 08:30 | Ultrasound Report ---
ULTRASOUND LEFT UPPER EXTREMITY VENOUS CLINICAL HISTORY: Thrombophlebitis. COMPARISON STUDY: No priors. TECHNIQUE: Real-time, grayscale, and color Doppler sonography of the deep veins of the left upper ext remity is performed. Compression and augmentation were utilized. FINDINGS: There is no sonographic evidence of deep venous thrombosis identified in the left upper ext remity. The left internal jugular, axillary, and brachial veins are patent and normally compressible. Normal venous waveforms and augmentation are seen within the left subclavian vein. The cephalic vein is clear. The visualized radial and ulnar veins are patent. There is occlusive superficial venous th rombus identified within the basilic vein extending from the mid forearm to above the antecubital fos sa. IMPRESSION: 1. There is no sonographic evidence of deep venous thrombosis identified in the left upper extremity. 2. There is a long segment of occlusive superficial venous thrombus identified within the basilic vei n extending from the mid forearm to above the antecubital fossa. Electronically signed by: Reji Garvin M.D. 01/14/2019 8:29 AM
[2019-01-14] MEDS ORDERED: MIDAZOLAM HCL 5 MG/ML 1 ML VIAL ONE ×2 (08:45→09:16)
[2019-01-14] MEDS ORDERED: fentaNYL citrate 100 MCG/2 ML VIAL ONE ×2 (08:45→09:16)
--- NOTE | 2019-01-14 08:54 | History & Physical Bridge Note ---
Date of Service January 14, 2019 History & Physical Bridge Note I have examined the patient, reviewed the History & Physical and in the interval since the performance of the History & Physical I have noted the following changes of clinical significance: no changes noted
--- NOTE | 2019-01-14 08:57 | Pre Anesthesia Assessment ---
Date of Service January 14, 2019 Pre Sedation Assessment Vital Signs Temp Pulse Resp BP Pulse Ox 01/14/19 07:10 37.2 C 84 16 145/99 H 98 Cardiovascular RRR, no murmur, no edema Respiratory normal respiratory effort, lungs clear to auscultation Pre-Sedation Airway Assessment Smoking Status: Never smoker Hx Sleep Apnea: No Hx Difficult Intubation: No Short, Thick Neck: No Thyromental Distance: > or= 3.5 Finger Breadths Oral Cavity: + WNL Mallampati Class: II ASA: ASA3 NPO Status Date of Last Intake of Fluids: 01/13/19 Time of Last Intake of Fluids: 19:00 Date of Last Intake of Solid Food: 01/13/19 Time of Last Intake of Solid Foods: 19:00 Procedure Planning Contraindications for Sedation: none Current Medications Reviewed: Yes Notes The planned sedation has been discussed with the patient. Informed Consent was obtained. I have identified the patient, determined the appropriateness of sedation and have assessed the patient immediately prior to the procedure. All medicine(s) and interventions are by my order.
--- NOTE | 2019-01-14 11:09 | Operative Report ---
Post Operative Report Pre & Post Diagnosis Operation Date: 01/14/19 07:30 Preoperative diagnosis: Resuscitated sudden cardiac Postoperative diagnosis: Same Procedure Operation Date: 01/14/19 07:30 Actual Procedures p Subq ICD Insertion and Testing - Chris Montalvo MD Surgeon Chris Montalvo MD Pattern Carrier None Estimated Blood Loss 50 Findings Consistent with Post-Op Diagnosis Good position of device and lead, TFT tested and successful at 65 J with a 14.4- second charge time Specimens None Complications none Disposition Accompanied Patient To Recovery: No Disposition: PCU Description of Procedure After obtaining informed consent for the procedure, the patient was taken to the operating room and prepped and draped in the standard sterile manner for a left- sided subcutaneous ICD implantation. The area in the lower part of the left axilla was anesthetized with 1% lidocaine local anesthetic as were areas 1 cm left of the xiphoid and 1 cm left of the superior sternal area. A 7 cm skin incision was made parallel to the ribs in the lower axillary space, this was carried down to the fascia and an ICD pocket was formed by blunt dissection. A bacitracin-soaked sponge was placed in the pocket. A 3 cm incision was made to the left of the xiphoid at a slight angle, this was carried down to the fascia. 2 sutures of 0 silk were placed in the fascia to anchor the lead. A 3 cm incision was made pleural to the sternum about 1 cm left and carried down to the fascia. One suture of 0 silk was placed through the fascia to anchor the tip of the lead. Using the [employer] tunneling tool the lead was tunneled from the axillary incision to the xiphoid incision and the lead placed through the tool. An anchoring sleeve was placed around the lead and sutured to the lead. The tunneling tool was then used to tunnel the lead from the lower sternal incision to the upper sternal incision. The tip of the lead was then sutured to the sternum using the suture which had been placed earlier. The lead was also anchored to the xiphoid area using the sutures that had been placed earlier tied around the sewing sleeve. The ICD was then connected to the lead in the axillary incision. The bacitracin soaked sponges removed from the pocket and the ICD was placed in the pocket with lead call beneath it. All 3 incisions were closed with a running double subcutaneous closure of 3-0 Vicryl. The ICD was then activated and measurements checked as noted on the implant data sheet. Ventricular fibrillation was induced using the algorithm built into the device, a single shock of 65 J was successful in cardioverting the rhythm to sinus. Shock impedance was normal. All 3 incisions were closed using a subcuticular closure of 4-0 Vicryl, Steri- Strips were used and bacitracin ointment was placed on the incision and a dressing applied. I attest to the content of the Intraoperative Record and any orders documented therein. Any exceptions are noted below.
[2019-01-14] MEDS ORDERED: KETOROLAC TROMETHAMINE 10 MG TABLET PO PRN (11:15)
[2019-01-14] MEDS ORDERED: ACETAMINOPHEN 325 MG TAB PO PRN (11:15)
[2019-01-14] MEDS ORDERED: FUROSEMIDE 40 MG TAB PO PRN (11:19)
--- NOTE | 2019-01-14 11:20 | Post Anesthesia Assessment ---
Date of Service January 14, 2019 Post Sedation Assessment Vital Signs Temp Pulse Resp BP Pulse Ox 01/14/19 07:10 37.2 C 84 16 145/99 H 98 Recovery Score Activity: Moves 4 extremities Respiration: Deep Breath/Cough Consciousness: Fully Awake Oxygen Saturation: > 92% On Room Air Discharge Sedation Level of Care: Fast Track Phase II Post Sedation Plan On clinical assessment, the patient appears to have tolerated the sedation without complications. Patient is recovering as anticipated. Patient will continue to be monitored by nursing and may be discharged when sedation discharge criteria are met per below protocol. Upon Completions of procedure and additional 15 minutes continue every 5 minute vital signs and the P.A.R. score; then discharge to a Phase I or Fast Track to Phase II per the following guidelines: * Discharge Patient to appropriate Phase II area if PAR is 8 or greater or return to pre- procedure baseline. The post - procedure orders will be as directed. * If PAR score is less than 8 or not return to pre-procedure baseline then patient will follow Phase I monitoring till PAR is reached for Phase II. The Phase I may be done in procedure room or may call to secure a Phase I area. * If naloxone or flumazenil are used for reversal, hold in Phase I for continued monitoring from when last reversal dose was given for a minimum of 60 minutes or longer pending the nurse and/or physician discretion of patient condition before discharge to Phase II. Please call the Sedation Physician to re-evaluate and complete post-note for discharge to Phase II area. Do NOT discharge from procedure sedation or Phase 1 until post- sedation evaluation note is complete by procedure /sedation MD Sedation Discharge Instructions to be given to the patient at discharge to home.
[2019-01-14] MEDS: CARVEDILOL 12.5 MG TAB PO SCH (17:38)
[2019-01-14] MEDS: SACUBITRIL-VALSARTAN 24-26 MG TAB PO SCH (20:19)
--- NOTE | 2019-01-15 07:36 | XRay Report ---
TWO VIEW CHEST CLINICAL HISTORY: Pacemaker implantation and lead placement. FINDINGS: PA and lateral chest radiographs are compared to study dated 01/09/2019 and correlated with chest CT dated 12/18/2018. A single lead cardiac AICD has been placed in the left chest wall. The lead is located superficial to the sternum. The heart is enlarged. The pulmonary vasculature is noncongest ed. There are small pleural effusions with bibasilar atelectasis. There is no pneumothorax. The skele isidoro structures are osteopenic. Degenerative changes noted throughout the thoracic spine. The bony tho rax appears intact. Subcutaneous emphysema is noted in the left chest wall. IMPRESSION: 1. A single lead AICD has been placed as above. 2. Cardiomegaly without radiographic evidence of congestive failure. 3. Small pleural effusions. Electronically signed by: Reji Garvin M.D. 01/15/2019 7:34 AM
[2019-01-15] MEDS: CARVEDILOL 12.5 MG TAB PO SCH (07:58)
[2019-01-15] MEDS: SACUBITRIL-VALSARTAN 24-26 MG TAB PO SCH (07:58)
--- NOTE | 2019-01-15 08:34 | Cardiology Progress Note ---
Date of Service January 15, 2019 Assessment & Plan (1) ICD (implantable cardioverter-defibrillator) in place: She is doing very well postop day #1. Her incisions look good, she has minimal discomfort. She is stable for discharge today. She has follow-up scheduled for Friday. Subjective Patient feels quite well, surprisingly little discomfort at her incision sites. No shortness of breath or palpitations. Physical Exam Vital Signs (Past 24 Hours): Last Vital Signs Temp 36.6 C 01/15/19 02:59 Pulse 68 01/15/19 02:59 Resp 22 01/15/19 02:59 BP 101/69 01/15/19 02:59 Pulse Ox 95 01/15/19 02:59 Physical Exam: Her 3 incisions (upper sternal border, lower sternal border, left axillary) all look clean and dry, no significant bleeding, no swelling. No tenderness. Results & Data Diagnostic Findings Telemetry: Sinus rhythm with premature beats Chest x-ray: Good lead position
--- NOTE | 2019-01-15 08:58 | Discharge Summary ---
Date of Service January 15, 2019 Admission HPI Ms. leahy is a 58-year-old female with a past medical history of acute systolic congestive heart failure, cardiomyopathy, ventricular tachycardia, bilateral pleural effusions, hypertension, anxiety, hyponatremia, hypokalemia, thrombocytopenia, and prolonged QT interval. The patient was recently admitted to [facility] from 12/19/2018 through 12/22/2018 for acute congestive heart failure secondary to cardiomyopathy. She presented with a 6 week history of viral symptoms including progressive cough, nausea, vomiting/diarrhea and subsequent bilateral lower extremity edema and acute shortness of breath. She was also noted to have significant hypertension. Before this admission she denies any prior cardiac history. Echocardiogram demonstrated that her left ventricular systolic function was severely reduced with an EF of 20-25% and severe global hypokinesis. Troponins were negative. Her BNP was intiially over 19,000. Chest xray was suggestive of heart failure and her chest CT noted bilateral pleural effusions. She was started on diuretics and a beta-bethany on admission. Although she had symptomatic relief, she was actually 3 L positive during the admission. Her weight dropped from 90 kg to 83.9 kg at discharge. She was discharged on Carvedilol 12.5 mg BID, Lasix 40 mg daily, Entresto 24/26 mg BID, and potassium 20 meq daily. She was discharged home with a LifeVest. She was readmitted from 01/09/2019 through 01/12/2019 after her LifeVest administered a shock while at home. It was subsequently decided to proceed with ICD implantation. Admission Exam Per Admitting Provider In general this is a well-developed well-nourished white female in no acute distress. HEENT exam is negative. Neck is supple with full carotid upstrokes. There are no carotid bruits. Jugular venous pressure is flat at 90. There is no thyromegaly. Cardiovascular exam reveals a regular rhythm with a normal S1 and S2. No S3, S4, or murmurs are noted. Lungs are clear without rales, rhonchi, or wheezes. Abdomen is soft and nontender without bruits. Extremities reveal intact radial artery and posterior tibial pulses bilaterally. There is no peripheral edema. Principal Diagnosis Principal Diagnosis Resuscitated sudden cardiac S/P subcutaneous ICD insertion Discharge Exam Vital Signs (Past 24 Hours): Last Vital Signs Temp 36.6 C 01/15/19 02:59 Pulse 68 01/15/19 02:59 Resp 22 01/15/19 02:59 BP 101/69 01/15/19 02:59 Pulse Ox 95 01/15/19 02:59 Physical Exam: Her 3 incisions (upper sternal border, lower sternal border, left axillary) all look clean and dry, no significant bleeding, no swelling. No tenderness. Discharge Data Allergies Allergy/AdvReac Type Severity Reaction Status Date / Time Penicillins Allergy HIVES,NAUSE Verified 01/09/19 00:00 A Sulfa (Sulfonamide Allergy Hives, Verified 01/09/19 00:00 Antibiotics) SWEKLLING ,NAUSEA Tetanus Vaccines and Toxoid AdvReac Nausea Verified 01/09/19 00:00 Procedures Performed Operation Date: 01/14/19 07:30 Actual Procedures p Subq ICD Insertion and Testing - Chris Montalvo MD Ordered Studies 01/14/19 07:00 EP Lab Images for PACS ONCE 01/14/19 07:46 US venous doppler UE LT Stat Hospital Course (1) ICD (implantable cardioverter-defibrillator) in place: Patient is a 58-year-old female with a past medical history significant for cardiomyopathy, systolic CHF, ventricular tachycardia, and hx of resuscitated sudden cardiac who underwent subcutaneous ICD insertion on 01/14/[address] Montalvo. She tolerated the procedure well. Device check showed excellent sensing and pacing characteristics. CXR showed good lead position and no evidence of pneumothorax. She will have follow-up in 3 days for incision check and in 1 month for device check. Total Time Total Time Spent Total Time Spent (In Minutes): 20 minutes Total Time Includes: Discharge Planning, Medication Reconciliation and Communication With Other Providers Discharge Plan Discharge Items Patient Disposition: Home - Self-Care Reason For Visit: Ventricular Tachycardia Discharge Diagnosis: S/P ICD implantation Discharge Goals: Improve disease control Activity: Per 'Additional Instructions' section Non-emergency contact: Primary Care Provider and Clinical Sciences Professor Call non-emergency contact if: you have any medication questions, your pain is not controlled, you have a fever, your wound has increased redness, your wound has increased drainage and your wound pain has increased Follow-up/Referrals: Karen Pan CRNP [Primary Care Provider] - Diet: Heart Healthy and Low Sodium (2gm) Addtl Provider Instructions: ACTIVITY RECOMMENDATIONS: * Do not raise affected arm over head for 2 weeks. SPECIAL CARE INSTRUCTIONS: * If bleeding occurs, apply direct pressure to area for 5 minutes. * Call your doctor if you have severe pain, fever, drainage or bleeding at site. * Keep dressing on and dry for 48 hours then remove. * Keep any scheduled doctor's appointment. * Implant Card - hand held device with website information given. SKIN IRRITATION: * You may experience some redness and/or swelling in the area where radiation was administered. If any skin irritation occurs, please contact your family physician. FOLLOW UP VISIT: 01/18/2019 @ 10:00 am for incision check 02/10/2019 @ 11:30 am for pacemaker check Prescriptions: Continued Entresto 24-26 mg tablet 1 tab PO BID 30 Days Qty: 60 RF: 6 potassium chloride 20 mEq tablet extended release 20 meq PO DAILY 30 Days Qty: 30 RF: 6 furosemide [Lasix] 40 mg tablet 40 mg PO DAILY PRN (Reason: Edema) RF: 0 carvedilol [Coreg] 12.5 mg tablet 12.5 mg PO BID Qty: 60 RF: 1 Stand-Alone Forms: [facility] Discharge Orders: Discharge Order (Routine); Ordered 01/15/19 Ordered By: Radha Montanez Admission Data Admit Date/Time: 01/14/19 09:59 Attending Provider: Chris Montalvo Admit Provider: Chris Montalvo Primary Care Provider: Karen Pan Service: Telemetry Other Interventions: Discharge Summary Assessment (RN) Last Done: 01/15/19 09:57 DC Date/Time DO NOT enter until pt leaves facility: 01/15/19 11:35
[2019-01-15] MEDS ORDERED: POTASSIUM CHLORIDE 20 MEQ TABCR PO SCH (09:00)
== END 2019-01-15 11:35 | disposition home or self-care (01) ==
LOC: ASU 05:49 → 2S 05:49